=== PATIENT | male | born 1965 | race Caucasian/White ===

== ENCOUNTER → 2016-11-11 | Day surgery (SDC) | payer BC ==
[2016-11-04 08:27] VITALS: Ht 182.9 cm; Wt 115.9 kg
[2016-11-04 12:51] LABS: HEMATOCRIT 44.2 % (42-52); MEAN CELL VOLUME 90.2 fL (80-100); MEAN CORPUSCULAR HGB CONC 34.4 g/dl (32-36); PLATELET COUNT 291 K/uL (130-400); WHITE BLOOD COUNT 7.09 K/uL (4.8-10.8)
[2016-11-04 12:52] LABS: BASO % 0.7 %; BASO ABS # 0.05 K/uL (0-0.2); COMPLETE YES; EOS % 2.7 %; IG% 0.3 %; LYMPH % 39.9 %; LYMPH ABS # 2.83 K/uL (1.2-3.4); MONO % 10.6 %; NEUT % 45.8 %
[2016-11-04 13:03] LABS: BUN/CREATININE RATIO 11.4 (10-20); CALCIUM 9.2 mg/dl (8.5-10.1); CREATININE 1.1 mg/dl (0.60-1.40); POTASSIUM 4.2 mmol/L (3.5-5.1)
[~2016-11-11] VITALS: Ht 182.9 cm; Wt 115.9 kg
[~2016-11-11] MED LIST: ATROPINE SULFATE 0.1 MG/ML 5ML SYR IV PRN; BUPIVACAINE/EPINEPHRINE 0.5% MPF 1:200,000 30 ML VIAL ONE; CEFAZOLIN 2000 MG/60 ML D5W IV SCH; DEXAMETHASONE SOD INJ 4 MG/ML VIAL ONE; EpHEDrine SULFATE INJ 50 MG/ML AMP IV PRN; FENTANYL CITRATE INJ 50 MCG/1 ML 2 ML VIAL ONE; FLUMAZENIL 0.1 MG/1 ML 10 ML VIAL IV PRN; HYDR-5688 PO; HYDROCODONE/ACETAMOPHEN 5/325MG TAB PO PRN; HYDROmorphone INJ 1 MG/ML SYR IV PRN; LABETALOL HCL IV 5 MG/ML 20ML IV PRN; LACTATED RINGER'S 1000ML 1,000 ML IV SCH; LIDOCAINE HCL 1% 20 ML VIAL ONE; LIDOCAINE HCL 2% 2 ML VIAL (20MG/ML) ONE; MIDAZOLAM HCL 1 MG/ML 2ML VIAL ONE; NALOXONE HCL 0.4 MG/1 ML VIAL/CARP IV PRN; ONDANSETRON INJ 2 MG/ML 2 ML VIAL IV PRN; ONDANSETRON INJ 2 MG/ML 2 ML VIAL ONE; PROMETHAZINE HCL INJ 12.5 MG in SODIUM CHLORIDE 0.9% 50ML 50 ML IV PRN; PROPOFOL IV EMULSION 10 MG/ML 20 ML VIAL IV ONE; SODIUM CHLORIDE 0.9% 1000ML 1,000 ML IV SCH
--- NOTE | 2016-11-11 08:18 | History & Physical Bridge - [place] ---
H&P Re-Evaluation Bridge Note: I have examined the patient, reviewed the History & Physical and in the interval since the performance of the History & Physical I have noted the following changes of clinical significance: No changes noted
--- NOTE | 2016-11-11 09:11 | OPERATIVE REPORT ---
DATE OF OPERATION: 11/11/2016 PREOPERATIVE DIAGNOSIS: Osteochondroma, right distal femur. POSTOPERATIVE DIAGNOSIS: Same. PROCEDURE: Excision of osteochondroma of the right distal femur. SURGEON: Dr. Efrain Campbell. SKIDDER: Gerry Baker PA-C, whose assistance was necessary for positioning the leg and helping with instrumentation. ANESTHESIA: General. COMPLICATIONS: None. CONDITION: Stable to PACU. INDICATIONS: Philip is a pleasant 51-year-old male who presented to my office 3 years ago with an osteochondroma of his right distal femur. It was not bothering him enough for excision at that time, so we treated conservatively. Unfortunately, over the past few months has been bothering him more often. He has elected to proceed with excision of the osteochondroma. OPERATION AND FINDINGS: On 11/11/2016 he arrived at [facility] for the above procedure. He was seen in the preoperative holding area and the operative extremity was identified and signed. He was given a preoperative antibiotic, taken back to the operating room, laid on the table in supine position and put under general anesthesia. The right knee was then prepped and draped in sterile fashion. Time-out was done and the patient and operative extremity was properly identified. A curvilinear incision was made directly over the VMO. Dissection was taken down to the VMO. It was a very large VMO. I did not think I could get underneath it, so I decided to go through it. I split the muscle fibers longitudinally and easily exposed the large osteochondroma. This was removed with osteotome and a rongeur. The osteochondroma was sent to pathology. Rasp was used to smooth out the final edges. Fluoroscopy was then brought in and complete excision was confirmed. The wound was then irrigated and the surrounding soft tissues were injected with 0.5% Marcaine with epinephrine. The incision was then closed with 3-0 Vicryl, running 3-0 V-Loc suture and a Prineo dressing. He was then placed in a soft dressing, extubated, transferred to a litter and taken to the postanesthesia care unit in stable condition. He tolerated the procedure well. I attest to the content of the Intraoperative Record and any orders documented therein. Any exceptio ns are noted below.
--- NOTE | 2016-11-11 09:20 | Discharge Instructions-SurgCtr ---
Discharge Instructions Date of Service Nov 11, 2016. Visit Reason for Visit: Lower Leg Arthralgia, Osteochondroma Right Femur Discharge Discharge Diagnosis / Problem: SAME ABOVE Discharge Goals Goal(s): Decrease discomfort, Improve function Activity Recommendations Activity Limitations: as noted below Lifting Limitations: gradually increase as tolerated Exercise/Sports Limitations: gradually increase as tolerated Shower/Bathe: tomorrow Anesthesia . Post Anesthesia Instructions: If you have had General Anesthesia or IV Sedation: * Do not drive today. * Resume driving when surgeon permits. * Do not make important decisions or sign legal documents today. * Call surgeon for: 1. Temperature elevations greater than 101 degrees F. 2. Uncontrollable pain. 3. Excessive bleeding. 4. Persistent nausea and vomiting. 5. Medication intolerance (nausea, vomiting or rash). * For nausea and vomiting use only clear liquids such as: tea, soda, bouillon until nausea subsides, then gradually increase diet as tolerated. * If you have any concerns or questions, call your surgeon's office. If physician is unavailable and it is an emergency, call 911 or go to the nearest emergency room. . Instructions / Follow-Up Instructions / Follow-Up MEDICATIONS: * Resume previous medications unless instructed otherwise by your surgeon. * Always take pain medication on a full stomach or with food to avoid upset stomach. * Do not drink alcohol or drive while taking narcotics. * Ibuprofen or Tylenol may be taken if narcotic not needed. SPECIAL CARE INSTRUCTIONS: __ None _X_ Keep extremity elevated and iced x 48 hours; apply ice 20-30 minutes 8-10 times/day. May remove at night. _X_ Crutches _X_ May discard when able __ Brace/Post-op shoe __ 24 hrs/day __ Remove at night _X_ Dressing __ Maintain until seen in office, may shower with plastic over site _X_ Remove dressings in 24-48 hours and then may shower REMOVE ONLY THE CLEAR DRESSING, WHITE PADDING _X_ Cover incisions with band-aids after showering __ Do not remove steri-strips Call physician if chills or temperature rises above 102 degrees or pain unrelieved by prescribed pain medications. Office [phone] Diet Recommendations Home Diet: no limitations Fluid Restriction: None Procedures Procedures Performed: Right Distal Femur Osteochondroma Excision Pending Studies Studies pending at discharge: yes (OSTEOCHONDROMA OF RIGHT KNEE) List of pending studies: OSTEOCHONDROMA OF RIGHT KNEE Work Instructions Return To Work: after follow-up (OR WHEN PAIN IS TOLERATED. NO DEEP SQUATING/ BENDING ) Lifting Limitations: none Medical Emergencies . Who to Call and When: Medical Emergencies: If at any time you feel your situation is an emergency, please call 911 immediately. . Non-Emergent Contact Non-Emergency issues call your: Primary Care Provider Call Non-Emergent contact if: you have a fever, temperature is above 101.5 . . "Provider Documentation" section prepared by Edwar Baker.
[2016-11-11 09:45] VITALS: TEMP 36.4
--- NOTE | 2016-11-11 10:20 | Anesthesia Progress Nt - [facility] ---
Anesthesia Post Op Note Date & Time Nov 11, 2016 at 10:19 Vital Signs Pain Intensity: 2.0 Vital Signs Past 12 Hours Date Time Temp Pulse Resp B/P Pulse Ox O2 Delivery O2 Flow Rate FiO2 11/11/16 09:45 36.4 69 16 136/81 95 Room Air 11/11/16 09:41 68 16 95 11/11/16 09:41 68 16 11/11/16 09:40 36.4 11/11/16 09:40 127/86 11/11/16 09:36 74 17 11/11/16 09:36 74 17 93 11/11/16 09:35 123/79 11/11/16 09:31 83 17 107/62 99 11/11/16 09:31 82 17 11/11/16 09:26 75 13 11/11/16 09:26 73 13 100 11/11/16 09:25 118/72 11/11/16 09:21 84 15 11/11/16 09:21 87 15 96 11/11/16 09:20 104/63 11/11/16 09:16 87 18 95 11/11/16 09:16 86 18 11/11/16 09:15 35.9 85 16 126/76 97 Diffusion Mask 6 11/11/16 07:42 36.5 77 18 127/85 94 Room Air Notes Mental Status: alert / awake / arousable, participated in evaluation Pt Amnestic to Procedure: Yes Nausea / Vomiting: adequately controlled Pain: adequately controlled Airway Patency, RR, SpO2: stable & adequate BP & HR: stable & adequate Hydration State: stable & adequate Anesthetic Complications: no major complications apparent
[2016-11-11 10:25] VITALS: BP 127/79; PULSE 71; O2SAT 96
--- NOTE | 2016-11-11 11:45 | [facility] Post Operative Brief Note ---
Immediate Operative Summary Operative Date Nov 11, 2016. Pre-Operative Diagnosis Lower Leg Arthralgia, Osteochondroma Right Femur Post-Operative Diagnosis Same Procedure(s) Performed Right Distal Femur Osteochondroma Excision Surgeon Dr. Campbell Manager Leadership Development Surgeon(s) Taylor Baker PA-C Estimated Blood Loss 2 ml Findings as above Specimens A. Right Knee Osteochondroma Complication(s) None Disposition Recovery Room / PACU
== END | disposition home or self-care (01) ==
LOC: X.SURG 07:21
PROVIDERS: ATTEND Orthopaedic Surgery
DX: D16.21 Benign neoplasm of long bones of right lower limb (principal); M25.561 Pain in right knee

== ENCOUNTER → 2017-06-27 | Outpatient (CLI) | payer BC ==
[2017-06-29 15:34] LABS: HSV TYPE 1 DNA Not Detected (Not Detected); HSV TYPE 1&2 DNA SOURCE Whole Blood; HSV TYPE 2 DNA Not Detected (Not Detected)
== END | disposition home or self-care (01) ==
LOC: C.LAB 16:17
PROVIDERS: ATTEND Physician Assistant Medical
DX: Z00.00 Encounter for general adult medical examination without abnormal findings (principal)

== ENCOUNTER → 2017-10-03 | Outpatient (CLI) | payer OTHER ==
[2017-10-03 10:44] LABS: ALBUMIN 3.5 gm/dl (3.4-5.0); ALT/SGPT 25 U/L (12-78); AST/SGOT 17 U/L (15-37); BLOOD UREA NITROGEN 12 mg/dl (7-18); CALCIUM 8.4 mg/dl (8.5-10.1); CARBON DIOXIDE 26 mmol/L (21-32); CREATININE 0.98 mg/dl (0.60-1.40); GLUCOSE 97 mg/dl (70-99); POTASSIUM 4.2 mmol/L (3.5-5.1); SODIUM 140 mmol/L (136-145)
[2017-10-03 11:08] LABS: ALKALINE PHOSPHATASE 72 U/L (45-117); CHOLESTEROL 217 mg/dl (0-200); LDL CHOLESTEROL CALCULATED 150 mg/dl; TOTAL PROTEIN 7.6 gm/dl (6.4-8.2)
== END | disposition home or self-care (01) ==
LOC: C.LABBC 08:28
PROVIDERS: ATTEND Internal Medicine Geriatric Medicine
DX: Z00.00 Encounter for general adult medical examination without abnormal findings (principal); Z11.59 Encounter for screening for other viral diseases; R03.0 Elevated blood-pressure reading, without diagnosis of hypertension; E78.5 Hyperlipidemia, unspecified

== ENCOUNTER 2023-07-14 17:39 | Inpatient (IN) ==
--- NOTE | 2023-07-14 17:48 | ED Triage Note ---
Date of Service July 14, 2023 Provider in Triage Author: Amaris Villela History of Present Illness This patient was briefly evaluated while in triage. An abbreviated physical exam was performed. This patient is a 57-year-old Male who presents to the ED for evaluation of chest tightness, chills, nausea and vomiting after he got out of the shower. Pt stats left arm feels as if he slept on it wrong, feel numbness and pain. Physical Exam CONSTITUTIONAL: in no acute pain or distress, resting comfortably SKIN: pink, warm, dry CARDIAC: regular rate and rhythm RESPIRATORY: in no respiratory distress, lungs clear to auscultation ABDOMEN:no TTP MSK: 5/5 strength throughout NEURO: no neuro deficits, alert and oriented x 3. Initial orders for labs and / or imaging were placed and patient was placed in t he waiting area until a bed is available. Please see further documentation for the full ED course.
--- NOTE | 2023-07-14 18:07 | XRay Report ---
XR chest 1V portable CLINICAL HISTORY: Chest pain, nonspecific TECHNIQUE: Single frontal radiograph of the chest was obtained. Comparison: None available at the time of this dictation. FINDINGS: No lines and tubes are seen. The cardiomediastinal silhouette is normal. The lungs are clear. No evid ence of pleural effusion or pneumothorax. IMPRESSION: No acute chest disease. ACT 112: Negative or not required by law. Electronically signed by: Mati Ruiz M.D. 07/14/2023 6:06 PM
[2023-07-14 18:11] LABS: Basophils # (auto) 0.05 K/uL (0.00-0.20); Basophils % (auto) 0.5 %; Eosinophils # (auto) 0.04 K/uL (0.00-0.50); Eosinophils % (auto) 0.4 %; Hematocrit (blood only) 48.7 % (42.0-52.0); Hemoglobin 16.9 g/dl (14.0-18.0); Immature Granulocytes # (auto) 0.02 K/uL (0.01-0.20); Immature Granulocytes % (auto) 0.2 %; Lymphocytes # (auto) 1.66 K/uL (1.20-3.40); Lymphocytes % (auto) 17.9 %; Mean Corpuscular Hemoglobin 32.4 pg (25.0-34.0); Mean Corpuscular Hgb Conc 34.7 g/dL (32.0-36.0); Mean Corpuscular Volume 93.5 fL (80.0-100.0); Mean Platelet Volume 8.9 fL (9.4-12.4); Monocytes # (auto) 0.84 K/uL (0.11-0.59); Monocytes % (auto) 9.1 %; Neutrophils # (auto) 6.65 K/uL (1.40-6.50); Neutrophils % (auto) 71.9 %; Platelet Count 316 K/uL (130-400); RDW Coefficient of Variation 12.6 % (11.5-14.5); RDW Standard Deviation 43.5 fL (36.4-46.3); Red Blood Count 5.21 M/uL (4.70-6.10); White Blood Count 9.26 K/ul (4.8-10.8)
[2023-07-14 18:30] LABS: Albumin Globulin Ratio 1.3 (0.9-2); Albumin Level 4.4 gm/dl (3.4-5.0); BUN Creatinine Ratio 13.7 (10-20); Bilirubin,Total 0.5 mg/dl (0.2-1.0); Calcium 9.4 mg/dl (8.6-10.3); Creatinine Clr Calc Pharmacy 101.8 ml/min; Est GFR (African American) 92.8 ml/min; Est GFR (Non-African American) 80.1 ml/min; Globulin 3.4 gm/dl (2.5-4.0); Potassium 4.2 mmol/L (3.5-5.1); Total Protein 7.8 gm/dl (6.0-8.3)
[2023-07-14 18:41] LABS: Troponin I High Sensitivity 183.8 pg/ml (0-20)
[2023-07-14] MEDS ORDERED: ASPIRIN CHEW 324 MG PO STA (19:32)
[2023-07-14] MEDS ORDERED: NITROGLYCERIN SL 0.4 MG/TAB TAB SL STA (19:32)
[2023-07-14] MEDS ORDERED: Heparin IV Adult Wt-Based Standard w/ INITIAL Bolus Protocol IV STA (19:32)
--- NOTE | 2023-07-14 19:45 | Emergency Department Note ---
Impression & Plan Acute non-ST elevation myocardial infarction (NSTEMI) ED Provider Note NAME: QIAN SEAMAN AGE: 57 SEX: M : 1965 ARRIVES VIA: Walk-In INFORMANT: Patient, ED PROVIDER(S): Emre Valverde MD CHIEF COMPLAINT: Chest pain HPI: Is a 57-year-old male history of dyslipidemia presenting for chest pain. Patient states that at around 4 PM, he was getting in the shower when he notes some initial left-sided chest pain. This radiated to his back into the shoulder blades. He notes that this was associated with nausea, dry heaves. He had diaphoresis shortly afterwards. He was unable to bring up actual vomitus mucus. He states the nausea slowly went away. He notes his initial pain was a 7/10, now 3/10. He notes he had never had a heart attack before. He notes the pain was not tearing in sensation, no shortness of breath, no pleurisy, leg pain, leg swelling. ROS: See above HPI for pertinent positives & negatives. A total of 10 systems reviewed and were otherwise negative. PAST MEDICAL HISTORY: See Below PAST SURGICAL HISTORY: See Below FAMILY HISTORY: See Below SOCIAL HISTORY: See Below HOME MEDICATIONS: See Below ALLERGIES: See Below VITALS: See Below PHYSICAL EXAMINATION: General: resting comfortably in no acute distress Head: Normocephalic and atraumatic Eyes: Normal inspection, extraocular muscles intact Ear, nose, throat: Normal external exam Neck: Normal range of motion Respiratory: lungs clear to auscultation bilaterally Cardiovascular: Regular rate/rhythm, no murmur GI: soft, nontender, no guarding or rebound Extremities: nontender, moves all extremities, 2+ pulses all extremities Neuro: The patient awake and alert, appropriately conversive, no focal deficits, symmetric faces Skin: Warm, dry, and intact MEDICAL DECISION MAKING: This is a 57-year-old male presenting for dyslipidemia presenting for chest pain. -ECG independently interpreted by me with normal sinus rhythm, rate of 70, normal axis, normal AR, normal QRS, normal QTc, submillimeter ST elevations in leads II and III -Triage troponin is elevated 183. Spoke with charge nurse to get the patient back more urgently -Patient notes improvement in pain after aspirin and nitro -Story is very concerning for NSTEMI at this time, without EKG changes and repeat EKG showing no significant ST elevations in lead II and III, this would be considered NSTEMI -Patient appears well clinically without evidence abnormalities, not diaphoretic, not clutching his chest or having urgent pain, only 3/10 pain in his left wrist now -Low concern for dissection with no other pain, stable pulses, low concern for PE without hypoxia, tachycardia, pleurisy or shortness of breath -Admitted to hospitalist service, under Dr. Hanson -Chest Xray independently interpreted by me showing no pneumothorax, focal opacity, or pleural effusions. Differential diagnosis: ACS, PE ER treatment provided: See below Diagnostics interpreted by me: ECG: None Cardiac Monitoring: An order was placed for continuous cardiac monitoring. The monitor shows a rate of 69 with sinus rhythm Laboratory studies: As stated above and show below. Imaging studies: See below. Past Med/Surg History Medical History Dyslipidemia GERD (gastroesophageal reflux disease) Surgical History History of colonoscopy History of herniorrhaphy History of knee surgery History of throat surgery History of ventral hernia repair [place] teeth removed Family History Mother Hearing loss Hypertension Father Hearing loss Other No family history of adverse response to anesthesia No family history of bleeding disorder Denies family history of Ovarian cancer Prostate cancer Myocardial infarction Breast cancer Colorectal cancer Social History (Updated 10/08/20 @ 09:45 by Efrain Khan DO) Smoking Status: Never smoker Second Hand Exposure: No; Do You Dip or Chew Tobacco: No; Hx Alcohol Use: Yes Alcohol type: beer and wine Alcohol Intake Frequency: 2-3 x/Week Alcohol Intake Frequency Comment: 2 GLASSES OF WINE / WEEK Hx Substance Use: No Preferred Language: Cymro Communication Ability: Effective Visual Impairment: Limited Hearing Ability: Normal Elastic Cutter Required: No Beliefs That Will Affect Care: None marital status: Single Current Living Situation: Alone current occupational status: employed 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 at [place] How many Children do You have: 0 Feels Safe at Home: Yes Safety Concerns: Feels Safe At This Time Childhood Exposure to Second-Hand Smoke: No caffeine: Yes Dental Care, Regularly: Yes Physical Activity Frequency: Does not Exercise Seatbelt Use: always Sunscreen Use: Yes Do you think of yourself as: lesbian/davis/homosexual Assistive Devices: Glasses Allergies Allergies Allergy/AdvReac Type Severity Reaction Status Date / Time atorvastatin [From Lipitor] AdvReac Mild muscle Verified 07/14/23 20:15 pasin Home Meds Home Medications Medication Instructions Recorded Confirmed acetaminophen 500 mg tablet 1,500 mg PO Q8 PRN Pain 07/14/23 07/14/23 (Tylenol Extra Strength) emtricitabine 200 mg-tenofovir 1 tab PO DAILY 07/14/23 07/14/23 disoproxil fumarate 300 mg tablet ibuprofen 200 mg tablet 600 mg PO Q8 PRN Pain 07/14/23 07/14/23 Results & Data (ED) Vital Signs Vital Signs - 24 hr 07/14/23 17:45 07/14/23 19:27 07/14/23 19:30 Temperature 37 C Temperature Source Temporal Artery Scan Pulse Rate 77 77 Pulse Rate [Apical] 70 Pulse Rhythm Regular Pulse Rhythm [Apical] Pulse Strength Normal Pulse Strength [Apical] Respiratory Rate 22 18 Respiratory Effort / Characteristics Non-Labored Spontaneous Respiratory Depth Normal Respiratory Pattern Regular Blood Pressure 176/103 H Blood Pressure [Left Arm] 159/104 H Blood Pressure Mean 127 Blood Pressure Mean [Left Arm] 122 Blood Pressure Position Sitting Blood Pressure Position [Left Arm] Pulse Oximetry 96 96 Oxygen Delivery Method Room Air Room Air Sepsis Recent Fever Within 48 Hours No Sepsis New/Unexplained Change in Mental Status No Sepsis Action Taken by Nursing No Action Required 07/14/23 21:00 07/14/23 21:00 07/14/23 21:00 Temperature 36.8 C Temperature Source Oral Pulse Rate 71 Pulse Rate [Apical] 68 Pulse Rhythm Pulse Rhythm [Apical] Regular Pulse Strength Pulse Strength [Apical] Normal Respiratory Rate 16 17 Respiratory Effort / Characteristics Non-Labored Spontaneous Respiratory Depth Normal Respiratory Pattern Regular Blood Pressure Blood Pressure [Left Arm] 165/88 H Blood Pressure Mean Blood Pressure Mean [Left Arm] 113 Blood Pressure Position Blood Pressure Position [Left Arm] Semi-fowlers Pulse Oximetry 96 96 95 Oxygen Delivery Method Room Air Room Air Room Air Sepsis Recent Fever Within 48 Hours Sepsis New/Unexplained Change in Mental Status Sepsis Action Taken by Nursing Laboratory Data 07/14/23 17:51 07/14/23 17:51 Lab Results 07/14/23 07/14/23 07/14/23 Range/Units 17:51 17:52 19:54 WBC 9.26 (4.8-10.8) K/ul RBC 5.21 (4.70-6.10) M/uL Hgb 16.9 (14.0-18.0) g/dl Hct 48.7 (42.0-52.0) % MCV 93.5 (80.0-100.0) fL MCH 32.4 (25.0-34.0) pg MCHC 34.7 (32.0-36.0) g/dL RDW Std Deviation 43.5 (36.4-46.3) fL RDW Coeff of Andi 12.6 (11.5-14.5) % Plt Count 316 (130-400) K/uL MPV 8.9 L (9.4-12.4) fL Immature Gran % (Auto) 0.2 % Neut % (Auto) 71.9 % Lymph % (Auto) 17.9 % [place] % (Auto) 9.1 % Eos % (Auto) 0.4 % Baso % (Auto) 0.5 % Neut # (Auto) 6.65 H (1.40-6.50) K/uL Lymph # (Auto) 1.66 (1.20-3.40) K/uL [place] # (Auto) 0.84 H (0.11-0.59) K/uL Eos # (Auto) 0.04 (0.00-0.50) K/uL Baso # (Auto) 0.05 (0.00-0.20) K/uL Immature Gran # (Auto) 0.02 (0.01-0.20) K/uL PT 10.7 (9.0-12.0) Seconds INR 1.0 (0.9-1.1) APTT 26 (21-31) Seconds PTT Ratio 0.9 Sodium 138 (136-145) mmol/L Potassium 4.2 (3.5-5.1) mmol/L Chloride 105 (98-107) mmol/L Carbon Dioxide 25 (21-32) mmol/L Anion Gap 8 (3-11) BUN 14 (6-23) mg/dl Creatinine 1.02 (0.6-1.4) mg/dl Est Cr Clr Drug Dosing 101.8 ml/min Est GFR ( Amer) 92.8 ml/min Est GFR (Non-Af Amer) 80.1 ml/min BUN/Creatinine Ratio 13.7 (10-20) Glucose 101 H (70-99(Fasting)) mg/dl Calcium 9.4 (8.6-10.3) mg/dl Total Bilirubin 0.5 (0.2-1.0) mg/dl AST 23 (13-39) U/L ALT 20 (7-52) U/L Alkaline Phosphatase 79 (34-104) U/L Troponin I High Sens 183.8 H* 644.3 H* D (0-20) pg/ml Total Protein 7.8 (6.0-8.3) gm/dl Albumin 4.4 (3.4-5.0) gm/dl Globulin 3.4 (2.5-4.0) gm/dl Albumin/Globulin Ratio 1.3 (0.9-2) Lipase 25 (11-82) U/L Administered Medications Heparin Sodium/Dextrose (Heparin Sodium/Dextrose) 25,000 units in 500 mls @ 33 mls/hr IV .[id number] [facility]; Protocol Stop: 08/13/23 19:59 Last Admin: 07/14/23 20:51 Dose: 1,650 units/hr, 33 mls/hr Documented By: ESHA Co-signed By: RIMA Potassium Chloride/Sodium Chloride (Normal Saline W/20 Meq Kcl) 20 meq in 1,000 mls @ 100 mls/hr IV .Q10H [facility]; Protocol Stop: 07/15/23 06:44 Last Admin: 07/14/23 21:10 Dose: 100 mls/hr Documented By: ESHA Discontinued Medications Aspirin (Aspirin Chew 324 Mg) 324 mg PO NOW STA Stop: 07/14/23 19:33 Last Admin: 07/14/23 19:40 Dose: 324 mg Documented By: RIMA Atorvastatin Calcium (Atorvastatin 40 Mg Tab) 80 mg PO ONCE ONE Stop: 07/14/23 20:43 Last Admin: 07/14/23 21:13 Dose: 80 mg Documented By: ESHA Heparin Sodium (Porcine) (Heparin Sod (Porcine) 1000 Unit/Ml) 3,000 units IV NOW ONE Stop: 07/14/23 21:01 Last Admin: 07/14/23 20:51 Dose: 3,000 units Documented By: ESHA Co-signed By: RIMA Nitroglycerin (Nitroglycerin Sl 0.4 Mg/Tab Tab) 0.4 mg SL NOW STA Stop: 07/14/23 19:33 Last Admin: 07/14/23 19:41 Dose: 0.4 mg Documented By: RIMA Imaging Data Radiologist's Impression: Chest X-Ray 07/14/23 17:47 XR chest 1V portable CLINICAL HISTORY: Chest pain, nonspecific TECHNIQUE: Single frontal radiograph of the chest was obtained. Comparison: None available at the time of this dictation. FINDINGS: No lines and tubes are seen. The cardiomediastinal silhouette is normal. The lungs are clear. No evidence of pleural effusion or pneumothorax. IMPRESSION: No acute chest disease. ACT 112: Negative or not required by law. Electronically signed by: Mati Ruiz M.D. 07/14/2023 6:06 PM Discharge Plan Visit Data Chief Complaint: Chest Pain Stated Complaint: CHEST PAIN, LT ARM PAIN, NAUSEA, CHILLS ED Provider: Emre Vavlerde Discharge Problem: Acute non-ST elevation myocardial infarction (NSTEMI) Patient Disposition: Admitted As Inpatient Discharge Instructions Interventions: ED Discharge Assessment Last Done: 07/14/23 23:01
[2023-07-14] MEDS ORDERED: HEPARIN SOD (PORCINE) 1000 UNIT/ML IV ONE ×3 (19:47→21:00)
[2023-07-14] MEDS ORDERED: ATORVASTATIN 40 MG TAB PO ONE (20:42)
[2023-07-14 20:44] LABS: Partial Thromboplastin Ratio 0.9; Partial Thromboplastin Time 26 Seconds (21-31); Prothrombin Time 10.7 Seconds (9.0-12.0)
[2023-07-14] MEDS ORDERED: NSS + 20MEQ KCL 20 MEQ/1,000 ML BAG IV SCH (20:45)
[2023-07-14] MEDS: HEPARIN SODIUM/DEXTROSE 25,000 UNITS/500 ML BAG IV SCH (20:51)
--- NOTE | 2023-07-14 21:02 | History & Physical Report ---
Date of Service July 14, 2023 Assessment & Plan (1) Acute non-ST elevation myocardial infarction (NSTEMI): (2) Dyslipidemia: (3) Hypertension: Plan NSTEMI/hypertension- The patient will be admitted to telemetry for serial cardiac enzymes, serial EKG's, cardiac rhythm monitoring and a 2-D echocardiogram with Dopplers. Patient's symptoms with substernal chest squeezing, with radiation to left arm, and nausea with vomiting. Initial troponin 183.8, with follow-up 644.3 Initial EKG performed as screening, showed ST elevations of 1 mm in leads III and aVF, however, when repeat performed, after leads had been moved, now shows decreased amplitude with no ST elevations Will follow EKG serially, and if suggestion of ST elevations, patient will be made a heart alert Heparin drip with maximum bolus 3000 units, adjust per protocol Received aspirin 324 mg in the ED, and will continue 81 mg every morning Start atorvastatin 80 mg p.o. now, and daily NSS + KCl 20 mill equivalents at 80 mL/h x 1 L As blood pressure improved start Nitropaste 1 inch to anterior chest wall every 6 hours Nitroglycerin sublingual every 5 minutes as needed chest pain Patient's heart rate in the upper 50s to lower 60s, and therefore unable to add beta-blockers Consult cardiology HIV- Continue TDF has from outpatient History of Present Illness Chief Complaint: The patient reports that he developed left arm tingling around 4 PM this afternoon, had then gotten into the shower, and developed chest squeezing and bilateral arm tightness. He then had a couple dry heaves, and then had 4 tablespoons of vomitus. With the persistence and worsening of the symptoms, and feeling as badly as he was, he decided come to ED for assessment. He denies any recent travels or sick exposures, and had no unusual food intakes. Primary Care Provider: Daryn Agarwal MD The patient is a 57-year-old male with a past medical history including patellofemoral syndrome, right knee effusion, obesity, elevated blood pressure without hypertension, dyslipidemia and HIV. He developed symptoms as noted above that began around 4:00 this afternoon. He denies any recent travels or sick exposures, and had no previous episode of the symptoms. He does have a family history of his father having high blood pressure and high cholesterol, but no overt heart disease noted. Significant laboratories: Troponin initially 183.8, with follow-up to 644.3 EKG performed in triage initially showed [address] elevations in leads III and aVF, however, when he was brought back into the full emergency department, leads were changed and reapplied, and ST elevations are no longer present in the inferior leads. Patient was referred for admission to the hospitalist service Allergies Allergy/AdvReac Type Severity Reaction Status Date / Time atorvastatin [From Lipitor] AdvReac Mild muscle Verified 07/14/23 20:15 pasin Home Medications Medication Instructions Recorded Confirmed Type acetaminophen 500 mg tablet 1,500 mg PO Q8 PRN Pain 07/14/23 07/14/23 History (Tylenol Extra Strength) emtricitabine 200 mg-tenofovir 1 tab PO DAILY 07/14/23 07/14/23 History disoproxil fumarate 300 mg tablet ibuprofen 200 mg tablet 600 mg PO Q8 PRN Pain 07/14/23 07/14/23 History Past Med/Surg History Medical History Dyslipidemia GERD (gastroesophageal reflux disease) Surgical History History of colonoscopy History of herniorrhaphy History of knee surgery History of throat surgery History of ventral hernia repair Ozan teeth removed Family History Mother Hearing loss Hypertension Father Hearing loss Other No family history of adverse response to anesthesia No family history of bleeding disorder Denies family history of Ovarian cancer Prostate cancer Myocardial infarction Breast cancer Colorectal cancer Social History (Updated 10/08/20 @ 09:45 by Efrain Khan DO) Smoking Status: Never smoker Second Hand Exposure: No; Do You Dip or Chew Tobacco: No; Hx Alcohol Use: Yes Alcohol type: beer and wine Alcohol Intake Frequency: 2-3 x/Week Alcohol Intake Frequency Comment: 2 GLASSES OF WINE / WEEK Hx Substance Use: No Preferred Language: Liberian Communication Ability: Effective Visual Impairment: Limited Hearing Ability: Normal [place] Required: No Beliefs That Will Affect Care: None marital status: Single Current Living Situation: Alone current occupational status: employed 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 [employer] How many Children do You have: 0 Feels Safe at Home: Yes Safety Concerns: Feels Safe At This Time Childhood Exposure to Second-Hand Smoke: No caffeine: Yes Dental Care, Regularly: Yes Physical Activity Frequency: Does not Exercise Seatbelt Use: always Sunscreen Use: Yes Do you think of yourself as: lesbian/davis/homosexual Assistive Devices: Glasses Review of Systems Review of Systems: The patient denies palpitations, cough, lower extremity swelling, sore throat, fevers, chills, sweats, diarrhea , constipation, abdominal pain, pelvic pain, blood in urine or stool, dysuria, urinary frequency or urgency, lightheadedness, dizziness, headache, memory loss, loss of consciousness, rash, abnormal bruising or bleeding, imbalance, focal or generalized weakness, numbness or tingling in legs, generalized arthralgias or myalgias, back or neck pain, or night sweats. The review of systems is otherwise negative other than for that already noted above, and at least 10 systems have been reviewed. Physical Exam Physical Exam: The patient is awake, alert and oriented 3, well developed and well nourished, normocephalic and atraumatic, lying in bed and in no acute distress. HEENT--PERRL, EOMI, mucous membranes and oropharynx normal. Neck--supple. No JVD. No bruits. Thyroid normal, trachea midline, no adenopathy. Heart--normal S1 and S2. No murmurs, rubs or gallops. Lungs--clear bilaterally, no respiratory distress, no accessory muscle use. Abdomen--normal bowel sounds and soft. Nontender. Nondistended, no hernias or masses, no organomegaly. Extremities--no cyanosis or clubbing. No edema. There are good distal pulses b/l. Dermatologic--normal skin turgor, normal color, no abnormal lymph nodes, no rash. Neurologic--cranial nerves II through XII grossly intact. Rheumatologic--normal range of motion. Psychiatric--normal affect. Results & Data Results & Data Vital Signs (Past 12 Hours) Vital Signs Temp Pulse Pulse Resp BP BP Pulse Ox 07/14/23 19:30 70 18 159/104 H 96 07/14/23 19:27 77 07/14/23 17:45 37 C 77 22 176/103 H 96 O2 Del Method 07/14/23 19:30 Room Air 07/14/23 19:27 07/14/23 17:45 Room Air Laboratory Results Laboratory Results WBC 9.26 K/ul (4.8-10.8) 07/14/23 17:51 RBC 5.21 M/uL (4.70-6.10) 07/14/23 17:51 Hgb 16.9 g/dl (14.0-18.0) 07/14/23 17:51 Hct 48.7 % (42.0-52.0) 07/14/23 17:51 MCV 93.5 fL (80.0-100.0) 07/14/23 17:51 MCH 32.4 pg (25.0-34.0) 07/14/23 17:51 MCHC 34.7 g/dL (32.0-36.0) 07/14/23 17:51 RDW Std Deviation 43.5 fL (36.4-46.3) 07/14/23 17:51 RDW Coeff of Andi 12.6 % (11.5-14.5) 07/14/23 17:51 Plt Count 316 K/uL (130-400) 07/14/23 17:51 MPV 8.9 fL (9.4-12.4) L 07/14/23 17:51 Immature Gran % (Auto) 0.2 % 07/14/23 17:51 Neut % (Auto) 71.9 % 07/14/23 17:51 Lymph % (Auto) 17.9 % 07/14/23 17:51 [place] % (Auto) 9.1 % 07/14/23 17:51 Eos % (Auto) 0.4 % 07/14/23 17:51 Baso % (Auto) 0.5 % 07/14/23 17:51 Neut # (Auto) 6.65 K/uL (1.40-6.50) H 07/14/23 17:51 Lymph # (Auto) 1.66 K/uL (1.20-3.40) 07/14/23 17:51 [place] # (Auto) 0.84 K/uL (0.11-0.59) H 07/14/23 17:51 Eos # (Auto) 0.04 K/uL (0.00-0.50) 07/14/23 17:51 Baso # (Auto) 0.05 K/uL (0.00-0.20) 07/14/23 17:51 Immature Gran # (Auto) 0.02 K/uL (0.01-0.20) 07/14/23 17:51 PT 10.7 Seconds (9.0-12.0) 07/14/23 17:52 INR 1.0 (0.9-1.1) 07/14/23 17:52 APTT 26 Seconds (21-31) 07/14/23 17:52 PTT Ratio 0.9 07/14/23 17:52 Sodium 138 mmol/L (136-145) 07/14/23 17:51 Potassium 4.2 mmol/L (3.5-5.1) 07/14/23 17:51 Chloride 105 mmol/L (98-107) 07/14/23 17:51 Carbon Dioxide 25 mmol/L (21-32) 07/14/23 17:51 Anion Gap 8 (3-11) 07/14/23 17:51 BUN 14 mg/dl (6-23) 07/14/23 17:51 Creatinine 1.02 mg/dl (0.6-1.4) 07/14/23 17:51 Est Cr Clr Drug Dosing 101.8 ml/min 07/14/23 17:51 Est GFR ( Amer) 92.8 ml/min 07/14/23 17:51 Est GFR (Non-Af Amer) 80.1 ml/min 07/14/23 17:51 BUN/Creatinine Ratio 13.7 (10-20) 07/14/23 17:51 Glucose 101 mg/dl (70-99(Fasting)) H 07/14/23 17:51 Calcium 9.4 mg/dl (8.6-10.3) 07/14/23 17:51 Total Bilirubin 0.5 mg/dl (0.2-1.0) 07/14/23 17:51 AST 23 U/L (13-39) 07/14/23 17:51 ALT 20 U/L (7-52) 07/14/23 17:51 Alkaline Phosphatase 79 U/L (34-104) 07/14/23 17:51 Troponin I High Sens 2408.6 pg/ml (0-20) H* D 07/14/23 23:38 Total Protein 7.8 gm/dl (6.0-8.3) 07/14/23 17:51 Albumin 4.4 gm/dl (3.4-5.0) 07/14/23 17:51 Globulin 3.4 gm/dl (2.5-4.0) 07/14/23 17:51 Albumin/Globulin Ratio 1.3 (0.9-2) 07/14/23 17:51 Lipase 25 U/L (11-82) 07/14/23 17:51 Impressions Chest X-Ray 07/14/23 17:47 XR chest 1V portable CLINICAL HISTORY: Chest pain, nonspecific TECHNIQUE: Single frontal radiograph of the chest was obtained. Comparison: None available at the time of this dictation. FINDINGS: No lines and tubes are seen. The cardiomediastinal silhouette is normal. The lungs are clear. No evidence of pleural effusion or pneumothorax. IMPRESSION: No acute chest disease. ACT 112: Negative or not required by law. Electronically signed by: Mati Ruiz M.D. 07/14/2023 6:06 PM Code Status & VTE Plan Code Status Full code VTE Prophylaxis Plan VTE Prophylaxis will be ordered: Yes PG Care Time/CCT Total # of Minutes Spent Total Time Spent with Patient: Total time spent is greater than 50% in coordination of care (as documented) at patient's floor/unit and/or counseling patient: Coding Level of Care Code 94900 INT INP/OBS CARE 3/75MIN Diagnoses Acute non-ST elevation myocardial infarction (NSTEMI) I21.4 Dyslipidemia E78.5 Hypertension I10
[2023-07-14] MEDS ORDERED: ONDANSETRON INJ 2 MG/ML 2 ML VIAL IV PRN (23:24)
[2023-07-14] MEDS ORDERED: ACETAMINOPHEN 500 MG TAB PO PRN (23:24)
[2023-07-15] MEDS ORDERED: NITROGLYCERIN SL 0.4 MG/TAB TAB SL PRN (03:50)
[2023-07-15 04:04] LABS: Albumin Globulin Ratio 1.3 (0.9-2); Albumin Level 3.6 gm/dl (3.4-5.0); BUN Creatinine Ratio 14.1 (10-20); Bilirubin,Total 0.5 mg/dl (0.2-1.0); Calcium 8.6 mg/dl (8.6-10.3); Creatinine Clr Calc Pharmacy 122.1 ml/min; Est GFR (African American) 110.5 ml/min; Est GFR (Non-African American) 95.4 ml/min; Globulin 2.8 gm/dl (2.5-4.0); Potassium 3.6 mmol/L (3.5-5.1); Total Protein 6.4 gm/dl (6.0-8.3)
[2023-07-15 04:10] LABS: Basophils # (auto) 0.05 K/uL (0.00-0.20); Basophils % (auto) 0.5 %; Eosinophils # (auto) 0.13 K/uL (0.00-0.50); Eosinophils % (auto) 1.4 %; Hematocrit (blood only) 42.8 % (42.0-52.0); Hemoglobin 15.1 g/dl (14.0-18.0); Immature Granulocytes # (auto) 0.02 K/uL (0.01-0.20); Immature Granulocytes % (auto) 0.2 %; Lymphocytes # (auto) 3.62 K/uL (1.20-3.40); Lymphocytes % (auto) 38.7 %; Mean Corpuscular Hemoglobin 32.8 pg (25.0-34.0); Mean Corpuscular Hgb Conc 35.3 g/dL (32.0-36.0); Mean Corpuscular Volume 92.8 fL (80.0-100.0); Mean Platelet Volume 9.4 fL (9.4-12.4); Monocytes # (auto) 0.71 K/uL (0.11-0.59); Monocytes % (auto) 7.6 %; Neutrophils # (auto) 4.83 K/uL (1.40-6.50); Neutrophils % (auto) 51.6 %; Platelet Count 267 K/uL (130-400); RDW Coefficient of Variation 12.7 % (11.5-14.5); RDW Standard Deviation 43.4 fL (36.4-46.3); Red Blood Count 4.61 M/uL (4.70-6.10); White Blood Count 9.36 K/ul (4.8-10.8)
[2023-07-15] MEDS: NITROGLYCERIN 2% OINTMENT 30GM TUBE EXT SCH ×3 (04:48→20:02)
--- OUTSIDE RECORDS SUMMARY | 2023-07-15 04:48 | External Medical Summary | Continuity of Care Document ---
Author Name Unknown Organization [facility] [address] [phone] Care Team Providers Care Women'S Activities Adviser Name Role Phone Daryn Agarwal Primary Care Physician [phone] Encounter [facility] [id number] Date(s): 05/03/23 - 05/03/23 [facility] [address] [employer] [address] [phone] Encounter Diagnosis Actinic keratoses(Discharge Diagnosis) - 05/03/23 Inflamed seborrheic keratosis(Discharge Diagnosis) - 05/03/23 Multiple nevi(Discharge Diagnosis) - 05/03/23 Eczema(Discharge Diagnosis) - 05/03/23 Discharge Disposition: Home or Self Care Attending Physician: MD Johns Sara B Referring Physician: MD Agarwal Christopher Allergies, Adverse Reactions, Alerts No Known Allergies Assessment and Plan Extracted from: Title:Office Visit Note Author:MD Andreas, Rama Strange Date:05/03/23 1.Actinic keratoses x1. Lesions treated with liquid nitrogen. Patient aware of possibility of infection, hypo or hyperpigmentation or scarring and did elect to proceed. They should inform me of any problems or recurrences post treatment. Care sheet given. 2.Inflamed seborrheic keratosis x1. Lesion treated with liquid nitrogen. Patient aware of possibility of infection, hypo or hyperpigmentation or scarring and did elect to proceed. They should inform me of any problems or recurrences post treatment. Care sheet given. 3.Multiple nevi Chronic, within normal limits today 4.Eczema Discussed moisturization techniques betamethasone as needed and white cotton gloves at night in the winter if needed Immunizations Given and Recorded Vaccine Date Status Refusal Reason zoster vaccine, inactivated 1 11/16/22 Recorded SARS-CoV-2 (COVID-19) mRNA-1273 vaccine 2 07/25/21 Recorded SARS-CoV-2 (COVID-19) mRNA BNT-162b2 vax 3 11/12/20 Recorded SARS-CoV-2 (COVID-19) mRNA BNT-162b2 vax 4 10/20/20 Recorded tetanus/diphtheria/pertuss, acel (Tdap) 5 10/03/17 Recorded tetanus toxoids-diphtheria, Td (Adult) 6 10/20/99 Recorded 1Result Comment: 2023-01-31: Historical information-source unspecified 2Result Comment: 2022-10-27: Historical information-source unspecified 3Result Comment: 2022-10-27: Historical information-source unspecified 4Result Comment: 2022-10-27: Historical information-source unspecified 5Result Comment: 2022-10-27: Historical information-source unspecified 6Result Comment: 2022-10-27: Historical information-source unspecified Medications betamethasone dipropionate 0.05% topical cream Start: 10/27/22 14:55:00 EDT, 1 appl, topical, bid, Disp# 50 g, Pharmacy: [facility] #[id number] Start Date: 10/27/22 Stop Date: 11/10/22 Status: Ordered Truvada 200 mg-300 mg oral tablet Start: 11/15/22 8:59:00 EDT, 1 tab, PO, Daily, Disp# 91 tab, Refills: 3, 2 tab on day 1 of first prescription, repeat labs in 3 mo, Pharmacy: [facility] #[id number] Start Date: 11/15/22 Stop Date: 11/10/23 Status: Ordered Mental Status 05/03/23 Barriers to Learning one year None evide nt Mandatory Health Literacy Documentation Yes Health Literacy Communication Barriers N ever Primary Language Hungarian Problem List Condition Confirmation Course Effective Dates Status H ealth Status Informant Dry skin Confirmed Active Atopic dermatitis Confirmed Active Multiple nevi Confirmed Active On pre-exposure prophylaxis for HIV Confirmed Active Eczema Confirmed Active Hyperlipidemia Confirmed Active Inflamed seborrheic keratosis Confirmed Active Actinic keratoses Confirmed Active Obstructive sleep apnea Confirmed Active Osteochondroma of right tibia 1 Confirmed Active Atypical pigmented skin lesion Confirmed Active Gout Confirmed Active 1s/p shave Diagnosis Diagnosis Type Effective Dates Health Status Clinical Service Informant Inflamed seborrheic keratosis Discharge Diagnosis 05/03/23 Multiple nevi Discharge Diagnosis 05/03/23 Eczema Discharge Diagnosis 05/03/23 Actinic keratoses Discharge Diagnosis 05/03/23 Procedures Procedure Date Related Diagnosis Body Site Status Shave biopsy and cauterisation of skin 09/05/19 Completed Lesion of vocal cord 1 06/2019 Co mpleted Hernia repair 2 2013 Completed 1removed 2hiatal Social History Social History Type Response Smoking Status Never smoked cigaret tammy Sex Male Dermatology Outpatient Note * MD Andreas, Ansley Strange: PERFORM Event Display: Dermatology Outpt Note Authored Date: [id number] Chief Complaint spots on right cheek History of Present Illness Patient is a pleasant 57-year-old male new to the office today. He is referred on for [address] Stephenson 1 on the right cheek and 1 on the right lateral cheek. They have been fairly persistent. 1 on the right central cheek itches and he scratches it or uses a razor and it gets irritated. He has a history of lots of sun damage as a child but not currently. He also has some dermatitis on his right hand. He uses betamethasone as needed. Past medical history hyperlipidemia Allergies meds updated per chart Family history positive for squamous cell in his mother. Physical Exam Gen: Well appearing patient, no acute distress. Alert and oriented x3. Good mood. Skin examination completed of face, eyelids, scalp, hair, lips, ears, neck, chest, back, abdomen,upper and lower extremities bilaterally including hands, feet, fingers and toes, fingernails and toenails, pt declined buttocks and groin.Patient has 1 actinic keratoses right lateral cheek. Isan irritated seborrheic keratosiswith milia cyst and comedo-like openings throughout the lesion on the right central cheek. An occasional seborrheic keratosis and occasional nevi on the trunk. Some erythema and scaling between the right thumb and first finger consistent with some mild hand eczema. Assessment/Plan 1.Actinic keratoses x1. Lesions treated with liquid nitrogen. Patient aware of possibility of infection, hypo or hyperpigmentation or scarring and did elect to proceed. They should inform me of any problems orrecurrences post treatment. Care sheet given. 2.Inflamed seborrheic keratosis x1. Lesion treated with liquid nitrogen. Patient aware of possibility of infection, hypo or hyperpigmentation or scarring and did elect to proceed. They should inform me of any problems or recurrences post treatment. Care sheet given. 3.Multiple nevi Chronic, within normal limits today 4.Eczema Discussed moisturization techniques betamethasone as needed and white cotton gloves at night in thewinter if needed Problem List/Past Medical History Ongoing Actinic keratoses Atopic dermatitis Atypical pigmented skin lesion Dry skin Eczema Gout Hyperlipidemia Inflamed seborrheic keratosis Multiple nevi Obstructive sleep apnea On pre-exposure prophylaxis for HIV Osteochondroma of right tibia Procedure/Surgical History Shave biopsy and cauterisation of skin (09/05/2019)Lesion of vocal cord (06/2019)Hernia repair (2013) Medications betamethasone topical(betamethasone dipropionate 0.05% topical cream), 1 appl, topical, bid emtricitabine-tenofovir(Truvada 200 mg-300 mg oral tablet), 1 tab, PO, Daily, 3 refills Allergies NKA Social History Smoking Status Never smoked cigarettes Alcohol - Low Risk Use:Current Type:Beer, Wine Frequency:3-5 times per week Average drinks per episode in last year:1 Maximum drinks per episode in last year:2 Employment/School Status:Employed Description:[employer] - staff w/ [employer] Exercise Times per week:5-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 Health Status Family Member(s) Immunizations Vaccine Date Status zoster vaccine, inactivated 11/16/2022 Recorded Comments : 2023-01-31: Historical information-source unspecified SARS-CoV-2 (COVID-19) mRNA-1273 vaccine 07/25/2021 Recorded Comments : 2022-10-27: Historical information-source unspecified SARS-CoV-2 (COVID-19) mRNA BNT-162b2 vax 11/12/2020 Recorded Comments : 2022-10-27: Historical information-source unspecified SARS-CoV-2 (COVID-19) mRNA BNT-162b2 vax 10/20/2020 Recorded Comments : 2022-10-27: Historical information-source unspecified tetanus/diphtheria/pertuss, acel (Tdap) 10/03/2017 Recorded Comments : 2022-10-27: Historical information-source unspecified tetanus toxoids-diphtheria, Td (Adult) 10/20/1999 Recorded Comments : 2022-10-27: Historical information-source unspecified Recommendations Health Maintenance Pending(in the next year) OverDue Adult Influenza Vaccine due02/05/23and every 1year Due Adult COVID-19 Vaccination due05/03/23Unknown Frequency Colorectal Cancer Screening due05/03/23Unknown Frequency Shingles Vaccine due05/03/23One-time only Due In Future Body Mass Index not due until01/31/24and every 1year Satisfied(in the past 1 year) Satisfied Body Mass Index on01/31/23.Satisfied by ROSALINA Thurman Kiara Shingles Vaccine on11/16/22.Satisfied by MD Agarwal Christopher Electronic Signature on File Electronically Reviewed/Signed by: Ansley Johns MD Author Signature Dt/Tm:05/03/2023 08:35 AM Department of Dermatology [facility] Patient Care team information Care Team Personnel Name: MD Agarwal Christopher Position: Physician - Family Med Member Role: Primary Care Provider Address: Address: [facility] [address] [address] [place] Care Team Related Persons Name: BELLE SEAMAN Address: home No Address Provided
--- OUTSIDE RECORDS SUMMARY | 2023-07-15 04:48 | External Medical Summary | Continuity of Care Document ---
Author Name Unknown Organization [place] [address] [address] [phone] Care Team Providers Care Assistant Store Leader Name Role Phone Daryn Agarwal Primary Care Physician [phone] Encounter [facility] [id number] Date(s): 01/31/23 - 01/31/23 [facility] [address] [facility] [address] [facility] [address] [place], [place] [address] [phone] Encounter Diagnosis Body mass index [BMI] 35.0-35.9, adult(Discharge Diagnosis) - 01/31/23 Idiopathic gout, right ankle and foot(Discharge Diagnosis) - 01/31/23 On pre-exposure prophylaxis for HIV(Discharge Diagnosis) - 01/31/23 Screen for colon cancer(Discharge Diagnosis) - 01/31/23 Annual physical exam(Discharge Diagnosis) - 01/31/23 Atypical pigmented skin lesion(Discharge Diagnosis) - 01/31/23 Hyperlipidemia(Discharge Diagnosis) - 01/31/23 Discharge Disposition: Home or Self Care Attending Physician: MD Agarwal Christopher Allergies, Adverse Reactions, Alerts No Known Allergies Immunizations Given and Recorded Vaccine Date Status [...] appl, topical, bid, Disp# 50 g, Pharmacy: [facility][id number] Start Date: 10/27/22 Stop Date: 11/10/22 Status: Ordered Truvada 200 mg-300 mg oral tablet Start: 11/15/22 8:59:00 EDT, 1 tab, PO, Daily, Disp# 91 tab, Refills: 3, 2 tab on day 1 of first prescription, repeat labs in 3 mo, Pharmacy: [facility][id number] Start Date: 11/15/22 Stop Date: 11/10/23 Status: Ordered Mental Status 01/31/23 Barriers to Learning one year None evide nt Mandatory Health Literacy Documentation Yes Health Literacy Communication Barriers N ever Primary Language Latvian Problem List Condition Confirmation Course Effective Dates Status H ealth Status Informant Dry skin Confirmed Active Atopic dermatitis Confirmed Active On pre-exposure prophylaxis for HIV Confirmed Active Hyperlipidemia Confirmed Active Obstructive sleep apnea Confirmed Active Osteochondroma of right tibia 1 Confirmed Active Atypical pigmented skin lesion Confirmed Active Gout Confirmed Active 1s/p shave Diagnosis Diagnosis Type Effective Dates Health Status Clinical Service Informant Annual physical exam Discharge Diagnosis 01/31/23 Atypical pigmented skin lesion Discharge Diagnosis 01/31/23 Idiopathic gout, right ankle and foot Discharge Diagnosis 01/31/23 Body mass index [BMI] 35.0-35.9, adult Discharge Diagnosis 01/31/23 Non-Specified On pre-exposure prophylaxis for HIV Discharge Diagnosis 01/31/23 Screen for colon cancer Discharge Diagnosis 01/31/23 Non-Specified Hyperlipidemia Discharge Diagnosis 01/31/23 Procedures Procedure Date Related Diagnosis Body Site Status Shave biopsy and cauterisation of skin 09/05/19 Completed Lesion of vocal cord 1 06/2019 Co mpleted Hernia repair 2 2013 Completed 1removed 2hiatal Vital Signs Most recent to oldest [Reference Range]: 1 Height 180 cm (01/31/23 2:01 PM) Patient Weight 114.1 kg (01/31/23 2:01 PM) Body Mass Index 35.22 kg/m2 (01/31/23 2:01 PM) Temperature [36.5-37.9 DegC] 37.0 DegC (01/31/23 2:01 PM) Blood Pressure 124/76mmHg (01/31/23 2:01 PM) BP Location # 1 Left Arm (01/31/23 2:01 PM) Social History Social History Type Response Smoking Status Never smoked cigaret tammy Sex Male Patient Care team information Care Team Personnel Name: MD Agarwal Christopher Position: Physician - Family Med Member Role: Primary Care Provider Address: Address: [address] [address] Care Team Related Persons Name: BELLE SEAMAN Address: home No Address Provided
[2023-07-15] MEDS: ASPIRIN 81 MG ECTAB PO SCH (08:32)
[2023-07-15] MEDS: EMTRICITABINE/TENOFOVIR TAB PO SCH (08:32)
[2023-07-15] MEDS: ROSUVASTATIN CALCIUM 20 MG TAB PO SCH (08:32)
--- NOTE | 2023-07-15 10:21 | Hospitalist Progress Note ---
Date of Service July 15, 2023 Assessment & Plan (1) Acute non-ST elevation myocardial infarction (NSTEMI): (2) Dyslipidemia: Plan (1) Acute non-ST elevation myocardial infarction (NSTEMI): (2) Dyslipidemia: (3) Hypertension: Plan (1) NSTEMI/HTN - admitted to telemetry for serial troponins, serial EKG's, cardiac rhythm monitoring, a 2-D echocardiogram w/ Dopplers. Patient's symptoms: substernal chest squeezing, with radiation to left arm, and nausea w/ vomiting. Troponins: 184 --> 644 --> 2409 --> 3450 --> 2918 Initial screening EKG: showed ST elevations of 1 mm in leads III and aVF Repeat EKG performed, after leads had been moved, now decreased amplitude with no ST elevations Do serial EKGs, and if suggestion of ST elevations, patient will be made a heart alert Heparin drip with maximum bolus 3000 units, adjust per protocol Received aspirin 324 mg in the ED, and will continue 81 mg every morning Start atorvastatin 80 mg p.o. now, and daily 40 mg NSS + KCl 20 mEqs at 80 mL/h x 1 L As blood pressure improved start Nitropaste 1 inch to anterior chest wall every 6 hours Nitroglycerin sublingual every 5 minutes as needed chest pain Patient's heart rate in the upper 50s to lower 60s, and therefore unable to add beta-blockers Consult cardiology - Echocardiogram pending - Cardiac catheter results pending (2) Dyslipidemia last lipid panel ([facility]): TChol, 223 LDL 155, HDL, 41 elevated Trops, chest pain suggest SC - pt not on a statin at time of admission - started on rosuvastatin, 40 mg, PO, daily Admission and Anticipated Discharge Date Admission Date: July 14, 2023 Supervising Physician Co-Signing Physician Notes I personally examined the patient and verified all barcenas points of history and exam, discussed case, and agree with decision making with Dr Benites Feeling okay now. Case discussed with cardiologyagree with left heart cath this will be done this afternoon. Vitals noted, in general he is awake and alert pleasant no distress. HEENT normocephalic atraumatic mucous membranes moist. Breathing unlabored no accessory muscle use good effort. Skin shows no rashes no pallor or icterus. Neuro without focal deficits. NSTEMIcath pending. Extensive discussion today largely focusing on lifestyle change, as well as discussing the critical role of med management, once med list has been more or less finalized, then we will discuss meds in detail as well. otherwise as above Subjective Chief Complaint: The patient reports that he developed left arm tingling around 4 PM this afternoon, had then gotten into the shower, and developed chest squeezing and bilateral arm tightness. He then had a couple dry heaves, and then had 4 tablespoons of vomitus. With the persistence and worsening of the symptoms, and feeling as badly as he was, he decided come to ED for assessment. He denies any recent travels or sick exposures, and had no unusual food intakes. Primary Care Provider: Daryn Agarwal MD The patient is a 57-year-old male with a past medical history including patellofemoral syndrome, right knee effusion, obesity, elevated blood pressure without hypertension, dyslipidemia and PReP for HIV. He developed symptoms as noted above that began around 4:00 yesterday afternoon. He denies any recent travels or sick exposures, and had no previous episode of the symptoms. He does have a family history of his father having high blood pressure and high chol esterol, but no overt heart disease noted. Patient describes his chest pain yesterday as coincident w/ tinging and numbness in both arms and pinkies/ring fingers. Pt said years ago had numbness/tingling in that distribution but was Dx'ed w/ leg length discrepancy, given lift in l. shoe and those Sx resolved. The chest pain was, as noted above, a chest tightness that seemed to radiate to left shoulder, left arm. Patient feels entirely symptom free this morning. Review of Systems Constitutional: no fever, no chills and no fatigue Respiratory: no cough, no dyspnea and no pain on inspiration Cardiovascular: no chest pain, no radiating jaw, neck or arm pain and no dyspnea Gastrointestinal: no abdominal pain, no nausea, no vomiting, no constipation and no diarrhea/loose stools Musculoskeletal: no neck pain and no muscle weakness Neurologic: no loss of sensation, no tingling and no numbness Physical Exam Constitutional: WD/WN, vitals as above Respiratory: normal respiratory effort, lungs clear to auscultation Cardiovascular: RRR, no murmur, no edema Gastrointestinal (Abdomen): normal bowel sounds, soft, nontender, no hepatosplenomegaly Psychiatric: A+Ox3, euthymic affect Results & Data Results & Data Vital Signs (Past 12 Hours) Vital Signs Temp Pulse Pulse Resp BP BP Pulse Ox 07/15/23 08:37 36.5 C 07/15/23 08:00 71 24 127/85 96 07/15/23 08:00 58 L 07/15/23 04:49 135/83 07/15/23 04:49 62 14 95 07/15/23 04:00 36.6 C 07/15/23 02:11 144/85 H 07/15/23 02:11 58 L 24 96 07/14/23 23:39 36.6 C 07/14/23 23:26 69 21 174/102 H 95 07/14/23 23:24 07/14/23 23:16 68 07/14/23 23:16 36.6 C 69 21 174/102 H 95 Pulse Ox O2 Del Method O2 Del Method 07/15/23 08:37 07/15/23 08:00 Room Air 07/15/23 08:00 07/15/23 04:49 07/15/23 04:49 07/15/23 04:00 07/15/23 02:11 07/15/23 02:11 07/14/23 23:39 07/14/23 23:26 07/14/23 23:24 94 Room Air 07/14/23 23:16 07/14/23 23:16 Room Air
[2023-07-15] MEDS: HEPARIN SODIUM/DEXTROSE 25,000 UNITS/500 ML BAG IV SCH (11:50)
--- NOTE | 2023-07-15 12:29 | Electrocardiogram Report ---
Test Reason : Blood Pressure : / mmHG Vent. Rate : 070 BPM Atrial Rate : 070 BPM P-R Int : 154 ms QRS Dur : 082 ms QT Int : 356 ms P-R-T Axes : 042 016 027 degrees QTc Int : 384 ms Normal sinus rhythm Normal ECG When compared with ECG of 19-JUN-2019 10:51, No significant change was found Confirmed by Walt Tyosn ([id number]) on 07/15/2023 12:29:40 PM Referred By: REFERRED SELF Confirmed By:Walt Tyson
--- NOTE | 2023-07-15 12:34 | Electrocardiogram Report ---
Test Reason : Blood Pressure : / mmHG Vent. Rate : 074 BPM Atrial Rate : 074 BPM P-R Int : 150 ms QRS Dur : 084 ms QT Int : 370 ms P-R-T Axes : 042 007 057 degrees QTc Int : 410 ms Normal sinus rhythm Normal ECG When compared with ECG of 14-JUL-2023 17:51, (unconfirmed) No significant change was found Confirmed by Walt Tyson ([id number]) on 07/15/2023 12:34:06 PM Referred By: REFERRED SELF Confirmed By:Walt Tyson
--- NOTE | 2023-07-15 12:36 | Electrocardiogram Report ---
Test Reason : Blood Pressure : / mmHG Vent. Rate : 065 BPM Atrial Rate : 065 BPM P-R Int : 166 ms QRS Dur : 084 ms QT Int : 400 ms P-R-T Axes : 036 035 032 degrees QTc Int : 416 ms Normal sinus rhythm Normal ECG When compared with ECG of 14-JUL-2023 19:48, (unconfirmed) Borderline criteria for Inferior infarct are no longer Present Confirmed by Walt Tyson ([id number]) on 07/15/2023 12:36:09 PM Referred By: REFERRED SELF Confirmed By:Walt Tyson
--- NOTE | 2023-07-15 13:09 | XCELERA ---
[id number]\[id number]
--- NOTE | 2023-07-15 16:00 | Hospitalist Progress Note ---
Date of Service July 15, 2023 Assessment & Plan (1) Acute non-ST elevation myocardial infarction (NSTEMI): Plan: - Patient presented with substernal chest squeezing, with radiation to left arm, and nausea with vomiting. - Initial troponin was 183.8. The follow-up troponins on 07/14 were 644.3 and 2408.6. The follow-up today was 3450.6. - Initial EKG showed below [address] elevations in two leads. When repeats were performed, they did not show ST elevations. - He was admitted to telemetry for serial cardiac enzymes, serial EKGs, and cardiac rhythm monitoring. - A 2-D echocardiogram with Dopplers was ordered, which did not show anything significant. - Heparin drip with maximum bolus 3000 units was given; Normal saline and potassium chloride mill equivalents were given. - Patient received aspirin 324 mg in ED and will continue 81 mg every morning. - Patient started atorvastatin 80 mg po and will continue daily. - Patient will take nitroglycerin sublingual every 5 minutes as needed for chest pain. - Patient will be started on an SIXTO/ARB. - Patient cannot add beta-blockers at this time because his heart rate is in the upper 50s and lower 60s. - Discussion was had with patient about increasing their physical exercise and adopting a diet that more closely resembles a Mediterranean diet. Patient reported that he will be getting back into the [employer]. - Cardiology was consulted on patient. They will do a catheterization and possible stent today at 5 pm. Plan Code: Full code Nutrition: Normal Dispo: ICU Admission and Anticipated Discharge Date Admission Date: July 14, 2023 Supervising Physician Co-Signing Physician Notes I personally examined the patient and verified all bracenas points of history and exam, discussed case, and agree with decision making with Tiffanie KAUFMAN and Dr Benites Feeling okay now. Case discussed with cardiologyagree with left heart caththis will be done this afternoon. Vitals noted, in general he is awake and alert pleasant no distress. HEENT normocephalic atraumatic mucous membranes moist. Breathing unlabored no accessory muscle use good effort. Skin shows no rashes no pallor or icterus. Neuro without focal deficits. NSTEMIcath pending. Extensive discussion today largely focusing on lifestyle change, as well as discussing the critical role of med management, once med list has been more or less finalized, then we will discuss meds in detail as well. otherwise as above Subjective 57 YO male with a history of dyslipidemia who presented to the ED for evaluation of chest tightness, chills, nausea, vomiting, and left arm numbness/pain. He reports that when he woke up on 07/14, his arm was tingling and it felt like he slept wrong. He had pain in his funny bone and wrist. This feeling continued throughout the day. At 4 pm, he was getting into the shower and noted some initial left-sided chest pain that radiated to his back into the shoulder blades. When he was drying off, the pain started going down both his arms; on his right side, he especially noticed it on his ring and pinky fingers. The pain was a 7/10. He went to lay down, but then felt very nauseous and started dry heaving. He threw up roughly a cup worth. After, he went to get dressed and see if the pain would go away if he sat down; it didnt, so he drove to the [facility] ER at around 5:45. He reported that he did not have any SOB, leg pain, or leg swelling and has not had any chest pain on exertion. He has not had any recent travels or sick exposures and does not believe he has had a previous episode of the symptoms. He has family history of father having high BP and high cholesterol, but no overt heart disease. At the ER, he got a EKG and labs. His first EKG had normal sinus rhythm, rate of 70, normal axis, normal IA, normal QRS, normal QTc, submillimeter ST elevations in leads II and III. Repeat EKG showed no significant ST elevations in leads II and III. ER doctor deemed him concerning for a NSTEMI. Chest x-ray was negative. Triage troponin was 183. Patient was given aspirin, nitroglycerin (0.4 mg), and heparin drip. Patient reported improvement in pain after aspirin and nitro (3/10 in left wrist). The follow-up troponins on 07/14 were 644.3 and 2408.6. The follow-up today was 3450.6. This morning, patient reported feeling a lot better; no chest pain or arm tingling, nausea, palpitations, lower extremity swelling, sweats, or weakness. Patient did report that when he was thinking about his last few months, he said that 3-4 months ago, he had a spasm of his left chest. He had reached and this really hurt. He could feel the pain all the way down to his arm. He felt like he had stretched his muscle. In the days after, he felt like it was bruised and when he pressed down, it was tender. At the time, he did not attribute it to his heart but was wondering last night if it might be. Review of Systems Review of Systems: General: no fevers, chills, night sweats, weakness HEENT: no sore throat or congestion Cardio: no palpitations, chest pain, lower extremity swelling Resp: no coughing, SOB GI: no diarrhea, constipation, abdominal pain : no blood in urine or stool, dysuria, increased urinary frequency/urgency MSK: no arthralgias or myalgias, back or neck pain Neuro: no lightheadedness, dizziness, headache, memory loss, tingling or numbness in extremities Skin: no abnormal bruising or bleeding Physical Exam Physical Exam: General: awake, well appearing, in no acute distress HEENT: PERRL, EOMI, mucous membranes and oropharynx normal Neck: supple, no JVD or bruits Heart: RRR, normal S1/S2, no murmurs, rubs or gallops Resp: CTAB, no respiratory distress Abd: normal bowel sounds and soft, nontender, nondistended, no hernias or masses, no organomegaly Extremities: no cyanosis or clubbing, no edema, distal pulses b/l Dermatologic: normal skin turgor, normal color, no abnormal lymph nodes, no rash Psychiatric: normal affect Results & Data Results & Data Vital Signs (Past 12 Hours) Vital Signs Temp Pulse Resp BP Pulse Ox O2 Del Method 07/15/23 08:37 36.5 C 07/15/23 08:00 71 24 127/85 96 Room Air 07/15/23 08:00 58 L 07/15/23 04:49 135/83 07/15/23 04:49 62 14 95 07/15/23 04:00 36.6 C
[2023-07-15] MEDS ORDERED: HEPARIN (PORCINE) 1000 UNIT/ML 10 ML (CATH LAB USE ONLY) ONE (17:41)
[2023-07-15] MEDS ORDERED: MIDAZOLAM HCL 1 MG/ML 2ML VIAL ONE (17:41)
[2023-07-15] MEDS ORDERED: niCARdipine HCL INJ 2.5 MG/ML 10 ML AMP ONE (17:41)
[2023-07-15] MEDS ORDERED: fentaNYL citrate PF 100 MCG/2 ML VIAL ONE (17:41)
[2023-07-15] MEDS ORDERED: NITROGLYCERIN/D5W 100MCG/ML 20ML SYR ONE (17:42)
--- NOTE | 2023-07-15 18:44 | Billing Data ---
Date of Service July 15, 2023 Coding Level of Care Code 25042 SUB INP/OBS CARE
--- NOTE | 2023-07-15 18:44 | Billing Data ---
Date of Service July 15, 2023 Coding Level of Care Code 16458 SUB INP/OBS CARE
[2023-07-15] MEDS ORDERED: OPTIRAY 350 ONE (18:47)
[2023-07-15] MEDS ORDERED: TICAGRELOR 90 MG TAB ONE (18:50)
--- NOTE | 2023-07-15 18:57 | Pre Anesthesia Assessment ---
Date of Service July 15, 2023 Pre Sedation Assessment Vital Signs Temp Pulse Pulse Resp BP BP Pulse Ox 07/15/23 16:48 72 135/84 98 07/15/23 16:37 97.9 F 07/15/23 16:22 66 18 95 07/15/23 16:22 133/84 07/15/23 16:00 72 07/15/23 16:00 69 24 07/15/23 12:00 97.9 F 07/15/23 11:58 127/76 07/15/23 11:58 67 15 07/15/23 08:37 97.7 F 07/15/23 08:00 71 24 127/85 96 07/15/23 08:00 58 L 07/15/23 04:49 135/83 07/15/23 04:49 62 14 95 07/15/23 04:00 97.9 F 07/15/23 02:11 144/85 H 07/15/23 02:11 58 L 24 96 07/14/23 23:39 98 F 07/14/23 23:26 69 21 174/102 H 95 07/14/23 23:24 07/14/23 23:16 68 07/14/23 23:16 97.9 F 69 21 174/102 H 95 07/14/23 21:00 98.2 F 68 17 165/88 H 95 07/14/23 21:00 71 16 96 07/14/23 21:00 96 07/14/23 19:30 70 18 159/104 H 96 07/14/23 19:27 77 Pulse Ox O2 Del Method O2 Del Method 07/15/23 16:48 Room Air 07/15/23 16:37 07/15/23 16:22 07/15/23 16:22 07/15/23 16:00 07/15/23 16:00 07/15/23 12:00 07/15/23 11:58 07/15/23 11:58 07/15/23 08:37 07/15/23 08:00 Room Air 07/15/23 08:00 07/15/23 04:49 07/15/23 04:49 07/15/23 04:00 07/15/23 02:11 07/15/23 02:11 07/14/23 23:39 07/14/23 23:26 07/14/23 23:24 94 Room Air 07/14/23 23:16 07/14/23 23:16 Room Air 07/14/23 21:00 Room Air 07/14/23 21:00 Room Air 07/14/23 21:00 Room Air 07/14/23 19:30 Room Air 07/14/23 19:27 Cardiovascular + regular rate Respiratory normal respiratory effort, lungs clear to auscultation Pre-Sedation Airway Assessment Smoking Status: Never smoker Hx Sleep Apnea: No Hx Difficult Intubation: No Short, Thick Neck: No Thyromental Distance: > or= 3.5 Finger Breadths Oral Cavity: + WNL Mallampati Class: III ASA: ASA3 NPO Status Date of Last Intake of Fluids: 07/15/23 Time of Last Intake of Fluids: 13:00 Date of Last Intake of Solid Food: 07/15/23 Time of Last Intake of Solid Foods: 13:00 Procedure Planning Contraindications for Sedation: none Current Medications Reviewed: Yes Notes The planned sedation has been discussed with the patient. Informed Consent was obtained. I have identified the patient, determined the appropriateness of sedation and have assessed the patient immediately prior to the procedure. All medicine(s) and interventions are by my order.
--- NOTE | 2023-07-15 18:58 | Post Anesthesia Assessment ---
Date of Service July 15, 2023 Post Sedation Assessment Vital Signs Temp Pulse Pulse Resp BP BP Pulse Ox 07/15/23 16:48 72 135/84 98 07/15/23 16:37 97.9 F 07/15/23 16:22 66 18 95 07/15/23 16:22 133/84 07/15/23 16:00 72 07/15/23 16:00 69 24 07/15/23 12:00 97.9 F 07/15/23 11:58 127/76 07/15/23 11:58 67 15 07/15/23 08:37 97.7 F 07/15/23 08:00 71 24 127/85 96 07/15/23 08:00 58 L 07/15/23 04:49 135/83 07/15/23 04:49 62 14 95 07/15/23 04:00 97.9 F 07/15/23 02:11 144/85 H 07/15/23 02:11 58 L 24 96 07/14/23 23:39 98 F 07/14/23 23:26 69 21 174/102 H 95 07/14/23 23:24 07/14/23 23:16 68 07/14/23 23:16 97.9 F 69 21 174/102 H 95 07/14/23 21:00 98.2 F 68 17 165/88 H 95 07/14/23 21:00 71 16 96 07/14/23 21:00 96 07/14/23 19:30 70 18 159/104 H 96 07/14/23 19:27 77 Pulse Ox O2 Del Method O2 Del Method 07/15/23 16:48 Room Air 07/15/23 16:37 07/15/23 16:22 07/15/23 16:22 07/15/23 16:00 07/15/23 16:00 07/15/23 12:00 07/15/23 11:58 07/15/23 11:58 07/15/23 08:37 07/15/23 08:00 Room Air 07/15/23 08:00 07/15/23 04:49 07/15/23 04:49 07/15/23 04:00 07/15/23 02:11 07/15/23 02:11 07/14/23 23:39 07/14/23 23:26 07/14/23 23:24 94 Room Air 07/14/23 23:16 07/14/23 23:16 Room Air 07/14/23 21:00 Room Air 07/14/23 21:00 Room Air 07/14/23 21:00 Room Air 07/14/23 19:30 Room Air 07/14/23 19:27 Recovery Score Activity: Moves 4 extremities Respiration: Deep Breath/Cough Circulation: +/-20% PreAnes Value Consciousness: Fully Awake Oxygen Saturation: O2 needed for >90% Discharge Sedation Level of Care: Fast Track Phase II Post Sedation Plan On clinical assessment, the patient appears to have tolerated the sedation without complications. Patient is recovering as anticipated. Patient will continue to be monitored by nursing and may be discharged when sedation discharge criteria are met per below protocol. Upon Completions of procedure up to 15 minutes continue every 5 minute vital signs and the P.A.R. score; then discharge to a Phase I or Fast Track to Phase II per the following guidelines: * Discharge Patient to appropriate Phase II area if PAR is 8 or greater or return to pre- procedure baseline. The post - procedure orders will be as directed. * If PAR score is less than 8 or not return to pre-procedure baseline then patient will follow Phase I monitoring till PAR is reached for Phase II. The Phase I may be done in procedure room or may call to secure a Phase I area. * If naloxone or flumazenil are used for reversal, hold in Phase I for continued monitoring from when last reversal dose was given for a minimum of 60 minutes or longer pending the nurse and/or physician discretion of patient condition before discharge to Phase II. Please call the Sedation Physician to re-evaluate and complete post-note for discharge to Phase II area. Do NOT discharge from procedure sedation or Phase 1 until post- sedation evaluation note is complete by procedure /sedation MD Sedation Discharge Instructions to be given to the patient at discharge to home.
--- NOTE | 2023-07-15 19:09 | Cardiac Catheterization ---
[facility] Data: Hand Clerical Verifier Cardiac Status Clinical evaluation leading to the procedure CAD Presenation: Non STEMI Anginal Classification: CCS IV Diagnostic Physicians Name: Daryn Casitllo MD Closure Device Recommendations: PCI without planned CABG Cardiac Cath Procedure Full Procedure Date July 15, 2023 Pre-Procedure Diagnosis Pre-Procedure Diagnosis: Non STEMI AUC Score AUC Score: 8 Post-Procedure Diagnosis Post-Procedure Diagnosis: Severe CAD, Successful PCI and Normal Intracardiac Pressures Procedure(s) Performed Procedure(s) Performed: Coronary Angiography, Left Heart Cath, Drug Eluting Stent and IVUS Loss Prevention Detective Daryn Castillo MD Lighting Specialist(s) luis enrique Estimated Blood Loss Estimated Blood Loss: 10 Medication(s) Medication(s): Fentanyl, Heparin, Nicardipine, Nitroglycerin and Versed Medication(s): Ticagrelor Summary of Findings Indication: High risk NSTEMI Access: 6 Fr right radial artery Catheters: [place], diagnostic JL 3.5, EBU 3.5 guide Findings: LM -medium caliber, no significant disease LAD -large caliber, 70-80% hazy stenosis in early mid segment involving trifurcation with first and second diagonals as well as first septal. Remainder of vessel without significant disease and extends to apex. D1, D2 small without significant disease. Circumflex -medium caliber, no significant disease. RCA -dominant, large caliber, proximal to mid luminal regularities. Distal vessel/RPDA without significant disease. LVEDP -14 -- PCI -- Antithrombotic therapy: Heparin, ticagrelor Procedure: Left main cannulated with EBU 3.5 Pre-procedure flow MARIBEL 2-3 [employer] 50 wire passed across lesion into distal vessel Short IVUS catheter placed to mid LAD. Pullback revealed mildly calcified, heterogeneous plaque extending across bifurcations with questionable mild associated thrombus. LAD stented with 3.0 x 28 mm Xience drug-eluting stent across bifurcation with diagonals Stent post-dilated with 4.0 noncompliant balloon IC vasodilators administered for spasm Repeat IVUS revealed well-expanded, well apposed stent with no apparent edge complications. Post procedure MARIBEL 3 flow, stent well expanded with minimal residual stenosis and no apparent cardiac complications. Arterial Closure: TR band Summary: 1. Severe single vessel coronary artery disease -70 to 80% earlymid LAD stenosis 2. Normal intracardiac filling pressure 3. Successful PCI of proximal to mid LAD with single drug-eluting stent (3.0 x 20 mm Xience; postdilated with 4.0 NC). Recommendations: To PCU for continued monitoring Loaded with ticagrelor 180 mg in Hand Clerical Verifier Continue dual-antiplatelet therapy for at least 1 year Continue statin, and ASCVD risk factor modification Consult cardiac Rehab Hemodynamics Rest Ao:: 110/68/110 Final Ao: 109/68/88 LV: 119/14 Recommendations Recommendations: PCI without planned CABG Specimens Specimens: None Radiation Exposure (mGy) 2693 Contrast (mls) 65 Anesthesia Moderate 3208-7545 Procedural Complication(s) None Disposition PCU I attest to the content of the Intraoperative Record and any orders documented therein. Any exceptions are noted below. MechioG Card Cath Procedure Codes Cardiac Catheterization Procedure 1: Cardiovascular Cath Procedures: 31066 Coronaries and LHC (+/-LV) Therapeutic Services & Ancillary Procedure 1: Cardiovascular Tx and Anc Procedures: 86503 IV Ultrasound (Coronary or Graft) Moderate Sedation Procedure 1: Sedation/Anesthesia: 40447 Mod Sedation by the same physician;Init15 Min Child Age 5 & Up Procedure 2: Sedation/Anesthesia: 12327 Mod Sedation by the same physician; Ea [id number] Minutes Stenting Procedure 1: Cardiovascular Stent Procedures: 15130 Perc transcatheter placement of intracoronary stent(s), with ang PG Care Time/CCT Total # of Minutes Spent Total Time Spent with Patient: Total time spent is greater than 50% in coordination of care (as documented) at patient's floor/unit and/or counseling patient:
--- NOTE | 2023-07-15 19:18 | Cardiology Consultation ---
Date of Consultation July 15, 2023 Assessment & Plan (1) Acute non-ST elevation myocardial infarction (NSTEMI): 2. Dyslipidemia 3. GERD 4. History of HIV 5. Preserved LV function, mild LVH Patient post single DELORES to acute earlymid LAD lesion. No procedural complications. Plan to monitor on telemetry overnight. DAPT with aspirin, ticagrelor for likely 1 year Can discontinue heparin infusion Can discontinue Nitropaste Start low-dose beta-emily, ARB Continue high intensity statin If stable overnight likely discharge tomorrow. Follow-up with me in 1 to 2 weeks. Will discuss cardiac rehab at that time. History of Present Illness Attending Physician: Kerwin Ortiz DO History of Present Illness Mr. Mendez is a very pleasant 57-year-old man seen today due to NSTEMI. No prior cardiac history. Prior medical history remarkable for dyslipidemia, GERD, HIV. Yesterday around 4 PM developed left arm numbness later followed by chest tightness, nausea and diaphoresis. Symptoms at their worst lasted for about 20 to 30 minutes before presented to ED. Had some residual symptoms for total of about 4 hours. Initial ECG showed some transient, borderline inferior ST elevation. Subsequent EKGs unremarkable. Echocardiogram showed preserved LV function with no regional wall motion abnormalities. HS TropI initially 183, peaked at 3400. Patient underwent cardiac catheterization today which revealed a 70 to 80% earlymid LAD stenosis. Heterogeneous appearance with questionable associated thrombus on intravascular ultrasound. Proximal to mid LAD stented with single DELORES (3.0 x 28 mm Xience postdilated with 4.0 NC). Family history: Father with carotid artery disease treated with TCAR by Dr. Peters. 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 Denies tobacco use. Allergies Allergy/AdvReac Type Severity Reaction Status Date / Time atorvastatin [From Lipitor] AdvReac Mild muscle Verified 07/14/23 20:15 pasin Home Medications Medication Instructions Recorded Confirmed Type acetaminophen 500 mg tablet 1,500 mg PO Q8 PRN Pain 07/14/23 07/14/23 History (Tylenol Extra Strength) emtricitabine 200 mg-tenofovir 1 tab PO DAILY 07/14/23 07/14/23 History disoproxil fumarate 300 mg tablet ibuprofen 200 mg tablet 600 mg PO Q8 PRN Pain 07/14/23 07/14/23 History Patient History Medical History Dyslipidemia GERD (gastroesophageal reflux disease) Surgical History History of colonoscopy History of herniorrhaphy History of knee surgery History of throat surgery History of ventral hernia repair [place] teeth removed Family History Mother Hearing loss Hypertension Father Hearing loss Other No family history of adverse response to anesthesia No family history of bleeding disorder Denies family history of Ovarian cancer Prostate cancer Myocardial infarction Breast cancer Colorectal cancer Social History (Updated 10/08/20 @ 09:45 by Efrain Khan DO) Smoking Status: Never smoker Second Hand Exposure: No; Do You Dip or Chew Tobacco: No; Hx Alcohol Use: Yes Alcohol type: beer and wine Alcohol Intake Frequency: 2-3 x/Week Alcohol Intake Frequency Comment: 2 GLASSES OF WINE / WEEK Hx Substance Use: No Preferred Language: Macanese Communication Ability: Effective Visual Impairment: Limited Hearing Ability: Normal Iron Assorter Required: No Beliefs That Will Affect Care: None marital status: Single Current Living Situation: Alone current occupational status: employed 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 [employer] How many Children do You have: 0 Feels Safe at Home: Yes Safety Concerns: Feels Safe At This Time Childhood Exposure to Second-Hand Smoke: No caffeine: Yes Dental Care, Regularly: Yes Physical Activity Frequency: Does not Exercise Seatbelt Use: always Sunscreen Use: Yes Do you think of yourself as: lesbian/davis/homosexual Assistive Devices: None Review of Systems Review of Systems: All systems reviewed & are unremarkable except as noted in HPI & below Physical Exam Physical Exam: General: Comfortable HEENT: Sclerae anicteric Lungs: Clear to auscultation bilaterally, no crackles or wheezes Cardiac: Regular rate and rhythm, no murmurs. Vascular: 2+ radial, DP pulses. No bruits Abdomen: Soft, nontender Extremities: Well perfused, no peripheral edema Neuro: Nonfocal Psych: Alert orient x3, normal affect and mood Results & Data Vital Signs (Past 12 Hours) Vital Signs Temp Pulse Resp BP Pulse Ox O2 Del Method 07/15/23 16:48 72 135/84 98 Room Air 07/15/23 16:37 97.9 F 07/15/23 16:22 66 18 95 07/15/23 16:22 133/84 07/15/23 16:00 72 07/15/23 16:00 69 24 07/15/23 12:00 97.9 F 07/15/23 11:58 127/76 07/15/23 11:58 67 15 07/15/23 08:37 97.7 F 07/15/23 08:00 71 24 127/85 96 Room Air 07/15/23 08:00 58 L PG Care Time/CCT Total # of Minutes Spent Total Time Spent with Patient: Total time spent is greater than 50% in coordination of care (as documented) at patient's floor/unit and/or counseling patient: Coding Level of Care Code 55491 IN/OBS CONSULT LVL 4,60M Diagnoses Acute non-ST elevation myocardial infarction (NSTEMI) I21.4
[2023-07-16 04:37] LABS: Basophils # (auto) 0.03 K/uL (0.00-0.20); Basophils % (auto) 0.4 %; Eosinophils # (auto) 0.13 K/uL (0.00-0.50); Eosinophils % (auto) 1.8 %; Hematocrit (blood only) 44.3 % (42.0-52.0); Hemoglobin 14.9 g/dl (14.0-18.0); Immature Granulocytes # (auto) 0.01 K/uL (0.01-0.20); Immature Granulocytes % (auto) 0.1 %; Lymphocytes # (auto) 2.14 K/uL (1.20-3.40); Lymphocytes % (auto) 29.3 %; Mean Corpuscular Hgb Conc 33.6 g/dL (32.0-36.0); Mean Corpuscular Volume 95.1 fL (80.0-100.0); Mean Platelet Volume 9.2 fL (9.4-12.4); Monocytes # (auto) 0.61 K/uL (0.11-0.59); Monocytes % (auto) 8.3 %; Neutrophils # (auto) 4.39 K/uL (1.40-6.50); Neutrophils % (auto) 60.1 %; Platelet Count 254 K/uL (130-400); RDW Coefficient of Variation 12.7 % (11.5-14.5); RDW Standard Deviation 44.2 fL (36.4-46.3); Red Blood Count 4.66 M/uL (4.70-6.10); White Blood Count 7.31 K/ul (4.8-10.8)
[2023-07-16 04:38] LABS: ANTI-Xa, UFH(UnfractionatedHep < 0.10 IU/ml (0.3-0.7)
[2023-07-16 04:51] LABS: Albumin Globulin Ratio 1.3 (0.9-2); Albumin Level 3.8 gm/dl (3.4-5.0); BUN Creatinine Ratio 13.2 (10-20); Bilirubin,Total 0.6 mg/dl (0.2-1.0); Calcium 8.9 mg/dl (8.6-10.3); Creatinine Clr Calc Pharmacy 113.8 ml/min; Est GFR (African American) 106.5 ml/min; Est GFR (Non-African American) 91.9 ml/min; Total Protein 6.8 gm/dl (6.0-8.3)
--- NOTE | 2023-07-16 06:47 | Hospitalist Progress Note ---
Date of Service July 16, 2023 Assessment & Plan (1) Acute non-ST elevation myocardial infarction (NSTEMI): (2) Dyslipidemia: Plan Pt is a 57 yo male with a past medical history of HLD who presents to the hospital on 07/14/23 for chest pain. NSTEMI - admitted to telemetry for serial troponins, serial EKG's, cardiac rhythm monitoring, a 2-D echocardiogram w/ Dopplers. Patient's symptoms: substernal chest squeezing, with radiation to left arm, and nausea w/ vomiting. Troponins: 184 --> 644 --> 2409 --> 3450 --> 2918 Initial screening EKG: showed ST elevations of 1 mm in leads III and aVF Repeat EKG performed, after leads had been moved, now decreased amplitude with no ST elevations Do serial EKGs, and if suggestion of ST elevations, patient will be made a heart alert Heparin drip with maximum bolus 3000 units, adjust per protocol Received aspirin 324 mg in the ED, and will continue 81 mg every morning Start atorvastatin 80 mg p.o. now, and daily 40 mg NSS + KCl 20 mEqs at 80 mL/h x 1 L As blood pressure improved start Nitropaste 1 inch to anterior chest wall every 6 hours Nitroglycerin sublingual every 5 minutes as needed chest pain Patient's heart rate in the upper 50s to lower 60s, and therefore unable to add beta-blockers Consult cardiology - Echocardiogram pending - Cardiac catheter results pending HTN Dyslipidemia last lipid panel ([facility]): TChol, 223 LDL 155, HDL, 41 elevated Trops, chest pain suggest UT - pt not on a statin at time of admission - started on rosuvastatin, 40 mg, PO, daily Admission and Anticipated Discharge Date Admission Date: July 14, 2023 Subjective Pt is a 57 yo male with a past medical history of HLD who presents to the hospital on 07/14/23 for chest pain. Today, Review of Systems Review of Systems: Constitutional: denies fever, chills, Cardio: denies chest pain, Resp: denies shortness of breath Physical Exam Physical Exam: General:Alert and oriented, no acute distress, HEENT: Normocephalic, moist oral mucosa, Cardio: Regular rate and rhythm, no murmur, Resp:Lungs clear to auscultation b/l, no wheezes or rhonchi, GI: Soft and nontender, nondistended, bowel sounds active Skin: Warm, pink, dry, Psych: Mood-affect congruence. Results & Data Results & Data Vital Signs (Past 12 Hours) Vital Signs Temp Pulse Resp BP Pulse Ox O2 Del Method 07/16/23 03:43 36.7 C 07/16/23 03:40 63 18 94 Room Air 07/16/23 03:40 127/76 07/16/23 00:00 65 07/15/23 23:12 36.7 C 07/15/23 23:04 157/86 H 07/15/23 23:04 65 20 07/15/23 20:28 36.7 C 07/15/23 19:10 123/88 07/15/23 19:10 61 28 H 99
--- NOTE | 2023-07-16 07:11 | Electrocardiogram Report ---
Test Reason : Blood Pressure : / mmHG Vent. Rate : 055 BPM Atrial Rate : 055 BPM P-R Int : 168 ms QRS Dur : 084 ms QT Int : 392 ms P-R-T Axes : 030 034 053 degrees QTc Int : 375 ms Sinus bradycardia Nonspecific T wave abnormality Abnormal ECG When compared with ECG of 15-JUL-2023 02:18, T wave inversion now evident in Anterior leads Confirmed by Daryn Castro ([id number]) on 07/16/2023 7:11:37 AM Referred By: REFERRED SELF Confirmed By:Eitan Castro
--- NOTE | 2023-07-16 07:17 | Electrocardiogram Report ---
Test Reason : Blood Pressure : / mmHG Vent. Rate : 063 BPM Atrial Rate : 063 BPM P-R Int : 166 ms QRS Dur : 084 ms QT Int : 414 ms P-R-T Axes : 031 034 079 degrees QTc Int : 423 ms Sinus rhythm with occasional Premature ventricular complexes T wave abnormality, consider anterior ischemia Abnormal ECG When compared with ECG of 15-JUL-2023 19:36, (unconfirmed) Premature ventricular complexes are now Present QT has lengthened Confirmed by Daryn Castro ([id number]) on 07/16/2023 7:17:44 AM Referred By: REFERRED SELF Confirmed By:Eitan Castro
[2023-07-16] MEDS: ASPIRIN 81 MG ECTAB PO SCH (08:55)
[2023-07-16] MEDS: EMTRICITABINE/TENOFOVIR TAB PO SCH (08:55)
[2023-07-16] MEDS: ROSUVASTATIN CALCIUM 20 MG TAB PO SCH (08:55)
[2023-07-16] MEDS ORDERED: METOPROLOL SUCC 25MG EXT REL TAB PO SCH (09:00)
[2023-07-16] MEDS ORDERED: ATORVASTATIN 40 MG TAB PO SCH (09:00)
[2023-07-16] MEDS ORDERED: TICAGRELOR 90 MG TAB PO SCH (09:00)
[2023-07-16] MEDS ORDERED: LOSARTAN POTASSIUM 25 MG TAB PO SCH (09:00)
--- NOTE | 2023-07-16 09:40 | Discharge Summary ---
Date of Service July 16, 2023 Admission HPI Per Admitting Provider The patient is a 57-year-old male with a past medical history including patellofemoral syndrome, right knee effusion, obesity, elevated blood pressure without hypertension, dyslipidemia and HIV. He developed symptoms as noted above that began around 4:00 this afternoon. He denies any recent travels or sick exposures, and had no previous episode of the symptoms. He does have a family history of his father having high blood pressure and high cholesterol, but no overt heart disease noted. Significant laboratories: Troponin initially 183.8, with follow-up to 644.3 EKG performed in triage initially showed [address] elevations in leads III and aVF, however, when he was brought back into the full emergency department, leads were changed and reapplied, and ST elevations are no longer present in the inferior leads. Patient was referred for admission to the hospitalist service Admission Exam Per Admitting Provider The patient is awake, alert and oriented 3, well developed and well nourished, normocephalic and atraumatic, lying in bed and in no acute distress. HEENT--PERRL, EOMI, mucous membranes and oropharynx normal. Neck--supple. No JVD. No bruits. Thyroid normal, trachea midline, no adenopathy. Heart--normal S1 and S2. No murmurs, rubs or gallops. Lungs--clear bilaterally, no respiratory distress, no accessory muscle use. Abdomen--normal bowel sounds and soft. Nontender. Nondistended, no hernias or masses, no organomegaly. Extremities--no cyanosis or clubbing. No edema. There are good distal pulses b/l. Dermatologic--normal skin turgor, normal color, no abnormal lymph nodes, no rash. Neurologic--cranial nerves II through XII grossly intact. Rheumatologic--normal range of motion. Psychiatric--normal affect. Principal Diagnosis NSTEMI Discharge Exam General: Alert and oriented, sitting up in bed comfortable, very pleasant gentleman in no acute distress Cardio: Regular rate and rhythm Resp: Lungs clear to auscultation, no wheezes or rhonchi GI: Soft and nontender, bowel sounds active Skin: Warm, pink and dry Discharge Data Allergies Allergy/AdvReac Type Severity Reaction Status Date / Time atorvastatin [From Lipitor] AdvReac Mild muscle Verified 07/14/23 20:15 pasin Consultations 07/14/23 20:07 ED Decision to Admit Stat 07/14/23 23:24 Consult Cardiology Routine Procedures Performed Operation Date: 07/15/23 17:00 Actual Procedures p Cineradiography w/Routine Exam - Daryn Castillo MD s Cath, Left with Cors and Vent - Daryn Castillo MD s Drug Eluting Stent SGl Vessel - Daryn Castillo MD s IVUS Coronary Single Vessel - Daryn Castillo MD Ordered Studies 07/15/23 14:16 CL Cath Imgs for PACS use only Stat 07/15/23 18:59 CL IVUS Coronary Single Vessel Routine Hospital Course (1) Acute non-ST elevation myocardial infarction (NSTEMI): (2) Dyslipidemia: Plan Pt is a 57 yo male with a past medical history of HLD who presents to the hospital on 07/14/23 for chest pain. Pt is stable and feeling well. Feel it is reasonable for him to go home at this time. NSTEMI - pt presented with substernal chest pain and pressure radiated into L arm with nausea/vomiting - EKG showed possible ST elevations in leads III and aVF initially, repeat had no elevations - troponin 184, up to 3450, then downtrended - echo done 07/15 showed no regional wall abnormalities and EF 60-65% - cardic cath done yesterday, 1 DELORES placed in LAD - pt stable overnight and feeling great today with no symptoms remaining - on discharge, per cardio, pt is to be on: aspirin 81mg and Brilinta, atorvastatin 40 mg, metoprolol succinate, Cozaar, nitro SL prn - pt to f/u with cardio in 1-2 weeks to discuss cardiac rehab HTN - medications per above - BPs have been 120-130s/ 70-80s Dyslipidemia - pt not on a statin at time of admission - continue rosuvastatin, 40 mg, PO, daily Total Time Total Time Spent Total Time Spent (In Minutes): <30 Discharge Plan Discharge Items Patient Disposition: Home - Self-Care Reason For Visit: NSTEMI Discharge Diagnosis: NSTEMI Activity: Per Instructions section Lifting: No more than 5 pounds Lifting Comment: No vigorous use of the right wrist for 7 days. Non-emergency contact: Primary Care Provider and Bindery Operator Call non-emergency contact if: you have any medication questions, your symptoms worsen and your wound has increased redness Follow-up/Referrals: Daryn Agarwal MD [Primary Care Provider] - (Follow up PCP appt made by patient.) Diet: Heart Healthy Addtl Attending Provider Instructions: You were seen at the hospital for chest pain and found to be having a non-ST elevation myocardial infarction, also known as a heart attack, and were thus admitted to the hospital. During this admission, you were evaluated by cardiology and a cardiac catheterization procedure was done with a placement of 1 drug-eluting stent in your left anterior descending (LAD) artery of your heart. Your symptoms have improved and your vitals have been stable overnight after your procedure, so we feel it is safe for you to go home at this time. It is essential that you take all of your medications as prescribed, with all new medications listed below. It is also very important you follow-up with cardiology 1-2 weeks after discharge from the hospital. Medications: Your medication list has been reviewed and reconciled upon discharge to ensure accuracy and continuity of care. An updated list of all your medications is included with your hospital discharge paperwork. Please review this list closely, and make note of any changes. We sent a new medication called Aspirin to your pharmacy. Take Aspirin 81 mg daily. We sent a new medication called Brilinta to your pharmacy. Take Brilinta 90 mg twice daily. This medication and the aspirin above are what as known as dual- antiplatelet therapy, which is recommended for all patient after a heart attack with stent placement. Expect to take both of these medications for at least the next year, and follow-up with cardiology for these medications. Please do not stop either without permission from cardiology. We sent a new medication called Losartan to your pharmacy. Take Losartan 25mg daily. This is a medication started on patients after they have a heart attack to improve heart recovery. We sent a new medication called Metoprolol succinate to your pharmacy. Take metoprolol succinate 25mg daily. This is another medication started on patients after they have a heart attack to improve heart recovery. We sent a new medication called Atorvastatin to your pharmacy. Take Ator vastatin 40mg daily. This medication is for your cholesterol, but is also important to take after a heart attack to reduce your risk for another heart attack. We sent a new medication called Nitroglycerin to your pharmacy. Take Nitroglycerin 0.4mg tablet under the tongue as needed for chest pain. Please call your green marketer before stopping any of the new medications listed above. All of these medications were sent to your pharmacy on [facility]. If you have any issues filling these prescriptions, please call [phone] and ask to leave a message for Dr. Pinedo. Take your medications as instructed; do not skip a dose of your medicines. Make sure all of your doctors know every medicine you are taking (including [id number] medicines, vitamins, and supplements). Call your primary care provider before taking any new medicines (including over- the-counter medicines, vitamins, and supplements), because some of these may interact with your current medications, or may make your symptoms worse. Tell your primary care provider if you cannot afford your medications. Activity: You can do normal everyday activities as your body allows. Take rest breaks if you feel tired. Do not overexert. Stop activity if you have pain, shortness of breath or feel dizzy. Follow-up appointments: Make an appointment with your primary care physician within one week of discharge. A copy of this summary will be sent to them. Every time you see your primary care physician, or any other doctor, bring your medication list, and a list of questions. Also be sure to follow-up with cardiology in 1-2 weeks after discharge from the hospital. CONTACT YOUR PRIMARY CARE PROVIDER if you experience any of the following: Shortness of breath or difficulty breathing Swelling of your feet, ankles, hands or abdomen Feeling tired with normal activity or experiencing dizziness or fainting Difficulty following your treatment plan, or difficulty taking medications CALL 911 OR GO TO THE EMERGENCY DEPARTMENT if you experience any of the following: Severe abdominal pain or nausea/vomiting Severe chest pain, or chest pain that radiates (moves) to your jaw or arm Sudden, severe shortness of breath or difficulty breathing Thank you for allowing us to participate in your care. Pending Studies at Discharge: No Stand-Alone Forms: [facility] Medic[facility] and DC Order Prescriptions: New aspirin 81 mg Tablet,Delayed Release (Dr/Ec) 81 mg PO QAM Qty: 30 11RF losartan 25 mg Tablet 25 mg PO QAM Qty: 30 3RF nitroglycerin [Nitrostat] 0.4 mg Tablet, Sublingual 0.4 mg sublingual Q5M PRN (Reason: chest pain) Qty: 30 3RF metoprolol succinate 25 mg Tablet Extended Release 24 Hr 25 mg PO QAM Qty: 30 3RF Brilinta 90 mg Tablet 90 mg PO BID 30 Days Qty: 60 11RF atorvastatin 40 mg tablet 40 mg PO DAILY Qty: 30 3RF Continued acetaminophen [Tylenol Extra Strength] 500 mg Tablet 1,500 mg PO Q8 PRN (Reason: Pain) ibuprofen 200 mg Tablet 600 mg PO Q8 PRN (Reason: Pain) emtricitabine-tenofovir (TDF) 200-300 mg tablet 1 tab PO DAILY Discharge Orders: Discharge Order (Routine); Ordered 07/16/23 Ordered By: Rebeca Pinedo Admission Data Admit Date/Time: 07/14/23 21:02 Attending Provider: Kerwin Ortiz Admit Provider: Lele Fritz Primary Care Provider: Daryn Agarwal Other Providers: Lele Fritz; Faisal Payne Other Interventions: Discharge Summary Assessment (RN) Last Done: 07/16/23 12:17 Supervising Physician Co-Signing Physician Notes I personally examined the patient and verified all barcenas points of history and exam, discussed case, and agree with decision making with Dr Pinedo Feeling okay and would like to get home. Vitals noted, in general he is awake and alert pleasant no distress. HEENT normocephalic atraumatic mucous membranes moist. Breathing unlabored no accessory muscle use good effort. Skin shows no rashes no pallor or icterus. Neuro without focal deficits. NSTEMICAD - s/p cath/stenting. med management/lifestyle change/secondary risk reduction - outlined in detail yesterday/today. as far as exercise - discussed to hold off until seeing cardiology as outpt but then anticipate working towards a goal of 30mins daily; mediterranean diet, meds. otherwise as above Resident Activity Tracking Resident Involvement: Resident Care Provided Care Provided: Adult Hospital Medicine
--- NOTE | 2023-07-16 11:41 | Cardiology Progress Note ---
Date of Service July 16, 2023 Assessment & Plan (1) Acute non-ST elevation myocardial infarction (NSTEMI): Plan: 2. Dyslipidemia 3. GERD 4. History of HIV 5. Preserved LV function, mild LVH Patient post single DELORES to acute earlymid LAD lesion. No procedural complications. No recurrent symptoms. No evidence of heart failure. Normal examination. No significant arrhythmias noted on telemetry. DAPT with aspirin, ticagrelor for likely 1 year continue metoprolol and losartan. -- reduce rosuvastatin to 20 mg daily or switch to atorvastatin 40 mg daily (interaction with Brilinta). Prior allergy to atorvastatin not well documented in his record. Likely some mild myalgias. -- will discuss cardiac rehab at follow-up visit. -- no vigorous use of the right wrist or lifting greater than 5 lb for 7 days. Admission and Anticipated Discharge Date Admission Date: July 14, 2023 Subjective This morning patient was feeling well. He did not report any recurrent symptoms of chest discomfort or arm pain. No discomfort in the right hand. He has been ambulatory around the room without dizziness, lightheadedness or breathing difficulty. Review of Systems Review of Systems: Per HPI Physical Exam Physical Exam: General: Comfortable HEENT: Sclerae anicteric Lungs: Clear to auscultation bilaterally, no crackles or wheezes Cardiac: Regular rate and rhythm, no murmurs. Vascular: Palpable right radial pulse. Good perfusion the right hand. No hematoma. Extremities: Well perfused Neuro: Nonfocal Psych: Alert orient x3, normal affect and mood Results & Data Vital Signs (Past 12 Hours) Vital Signs Temp Pulse Resp BP Pulse Ox O2 Del Method 07/16/23 09:03 80 23 07/16/23 08:11 77 20 07/16/23 08:11 135/68 07/16/23 08:00 36.8 C 07/16/23 08:00 70 17 97 Room Air 07/16/23 08:00 36.8 C 07/16/23 07:00 62 16 07/16/23 03:43 36.7 C 07/16/23 03:40 63 18 94 Room Air 07/16/23 03:40 127/76 07/16/23 00:00 65 Laboratory Results Abnormal Lab Results 07/15/23 07/15/23 07/15/23 11:05 18:36 19:29 WBC RBC Hgb Hct MCV MCH MCHC RDW Std Deviation RDW Coeff of Andi Plt Count MPV Immature Gran % (Auto) Neut % (Auto) Lymph % (Auto) Treasure % (Auto) Eos % (Auto) Baso % (Auto) Neut # (Auto) Lymph # (Auto) Treasure # (Auto) Eos # (Auto) Baso # (Auto) Immature Gran # (Auto) Activ Coag Time Kaolin 239 H Heparin Anti-Xa, Unfract Sodium Potassium Chloride Carbon Dioxide Anion Gap BUN Creatinine Est Cr Clr Drug Dosing Est GFR ( Amer) Est GFR (Non-Af Amer) BUN/Creatinine Ratio Glucose Calcium Magnesium Total Bilirubin AST ALT Alkaline Phosphatase Troponin I High Sens 2917.7 H* 1747.2 H* D Total Protein Albumin Globulin Albumin/Globulin Ratio Nasal Screen MRSA (PCR) 07/15/23 07/16/23 Unknown 03:51 WBC 7.31 RBC 4.66 L Hgb 14.9 Hct 44.3 MCV 95.1 MCH 32.0 MCHC 33.6 RDW Std Deviation 44.2 RDW Coeff of Andi 12.7 Plt Count 254 MPV 9.2 L Immature Gran % (Auto) 0.1 Neut % (Auto) 60.1 Lymph % (Auto) 29.3 Treasure % (Auto) 8.3 Eos % (Auto) 1.8 Baso % (Auto) 0.4 Neut # (Auto) 4.39 Lymph # (Auto) 2.14 Treasure # (Auto) 0.61 H Eos # (Auto) 0.13 Baso # (Auto) 0.03 Immature Gran # (Auto) 0.01 Activ Coag Time Kaolin Heparin Anti-Xa, Unfract < 0.10 L Sodium 138 Potassium 4.0 Chloride 106 Carbon Dioxide 25 Anion Gap 7 BUN 12 Creatinine 0.91 Est Cr Clr Drug Dosing 113.8 Est GFR ( Amer) 106.5 Est GFR (Non-Af Amer) 91.9 BUN/Creatinine Ratio 13.2 Glucose 94 Calcium 8.9 Magnesium 2.0 Total Bilirubin 0.6 AST 23 ALT 18 Alkaline Phosphatase 71 Troponin I High Sens Total Protein 6.8 Albumin 3.8 Globulin 3.0 Albumin/Globulin Ratio 1.3 Nasal Screen MRSA (PCR) Negative PG Care Time/CCT Total # of Minutes Spent Total Time Spent with Patient: Total time spent is greater than 50% in coordination of care (as documented) at patient's floor/unit and/or counseling patient: Coding Level of Care Code 31194 SUB INP/OBS CARE 235MIN Diagnoses Acute non-ST elevation myocardial infarction (NSTEMI) I21.4
--- NOTE | 2023-07-16 14:30 | Billing Data ---
Date of Service July 16, 2023 Coding Level of Care Code 64130 IN/OBS DISCH 30 MIN/LESS
== END 2023-07-16 13:14 | disposition home or self-care (01) | DRG 322 ==
LOC: ED 17:39 → SUATTDRO 21:02 → 1E 21:02